=== PATIENT | male | born 1950 | race Caucasian/White ===

== ENCOUNTER → 2017-01-21 | Outpatient (CLI) | payer OTHER ==
[~2017-01-21] MED LIST: ASPEC325 PO; ATEN-175 PO; AZEL0.15 NAE; CRDCD180 PO; GLC500 PO; GLIP10TA3 PO; HYDR25TA5 PO; LEVO125T5 PO; LPT40 PO; NRN100 PO; NSNN50 NAE; RANI150C4 PO; SILD100T PO
[2017-01-21 12:20] LABS: BASO % 0.2 %; BASO ABS # 0.01 K/uL (0-0.2); COMPLETE YES; EOS % 1.6 %; HEMATOCRIT 34.9 % (42-52); IG% 0.6 %; LYMPH % 39.2 %; LYMPH ABS # 2.01 K/uL (1.2-3.4); MEAN CELL VOLUME 85.1 fL (80-100); MEAN CORPUSCULAR HEMOGLOBIN 29.3 pg (25-34); MEAN CORPUSCULAR HGB CONC 34.4 g/dl (32-36); MEAN PLATELET VOLUME 9.7 fL (7.4-10.4); MONO % 11.1 %; NEUT % 47.3 %; PLATELET COUNT 154 K/uL (130-400); WHITE BLOOD COUNT 5.13 K/uL (4.8-10.8)
[2017-01-21 13:15] LABS: ESTIMATED AVERAGE GLUCOSE 151 mg/dl; HA1C FLAG Normal (Normal)
[2017-01-21 14:20] LABS: ALT/SGPT 27 U/L (12-78); BLOOD UREA NITROGEN 31 mg/dl (7-18); BUN/CREATININE RATIO 16.3 (10-20); CALCIUM 8.8 mg/dl (8.5-10.1); CARBON DIOXIDE 26 mmol/L (21-32); CHLORIDE 104 mmol/L (98-107); CHOLESTEROL 110 mg/dl (0-200); GLUCOSE 167 mg/dl (70-99); POTASSIUM 3.8 mmol/L (3.5-5.1); SODIUM 139 mmol/L (136-145); TRIGLYCERIDES 325 mg/dl (0-150); VERY LOW DENSITY LIPOPROT CALC 65 mg/dl
[2017-01-21 14:29] LABS: CHOLESTEROL/HDL RATIO 3.5; HDL CHOLESTEROL 31 mg/dl; LDL CHOLESTEROL CALCULATED 14 mg/dl
--- NOTE | 2017-01-28 07:33 | CODING QUERY MEDICAL NECESSITY ---
CQSUPPORTING DIAGNOSIS NEEDED A supporting diagnosis is required for the test/procedure performed on this patient in order for us to be reimbursed by the patient's insurance. Please provide a supporting diagnosis for the following test/procedure listed below next to the test name along with your signature. *If there is no additional diagnosis for this patient that would support the following test/procedure please document that below next to the test/procedure. Test(s)/Procedure(s) that require a supporting diagnosis: DOS 01/21/17 VITAMINS AND METABOLIC FUNCTION VITAMIN B12 Provider Signature: Date: Thank you Sugar Santos Health Information Management Once completed, please kindly fax back to [phone] For questions please call [phone]
== END | disposition home or self-care (01) ==
LOC: C.LABPBG 09:12
PROVIDERS: ATTEND Family Medicine
DX: E11.9 Type 2 diabetes mellitus without complications (principal); I10 Essential (primary) hypertension; E03.9 Hypothyroidism, unspecified; E78.5 Hyperlipidemia, unspecified

== ENCOUNTER → 2017-02-11 | Outpatient (CLI) | payer OTHER ==
[2017-02-11 15:43] LABS: BLOOD UREA NITROGEN 36 mg/dl (7-18); BUN/CREATININE RATIO 21.2 (10-20); CALCIUM 9.1 mg/dl (8.5-10.1); CARBON DIOXIDE 30 mmol/L (21-32); CHLORIDE 106 mmol/L (98-107); GLUCOSE 111 mg/dl (70-99); MAGNESIUM 2.3 mg/dl (1.8-2.4); PHOSPHORUS 3.5 mg/dl (2.5-4.9); POTASSIUM 4.3 mmol/L (3.5-5.1); SODIUM 142 mmol/L (136-145)
[2017-02-11 15:45] LABS: URINE APPEARANCE CLEAR (CLEAR); URINE BILIRUBIN NEG (NEG); URINE COLOR YELLOW; URINE NITRITE NEG (NEG); UROBILINOGEN NEG (NEG); ZZUR CULT IF INDIC CLEAN CATCH NO
[2017-02-11 15:49] LABS: MANUAL MICROSCOPIC REQUIRED? NO; REVIEW REQ? NO
[2017-02-11 15:59] LABS: URINE PROTIEN/CREAT RATIO 0.2 (0-0.2); URINE TOTAL PROTEIN 31.1 mg/dl (0-11.9)
[2017-02-13 17:33] LABS: ALBUMIN 4.2 G/DL (3.8-4.8); FREE KAPPA 63.1 MG/L (3.3-19.4); GAMMA GLOBULIN 1.3 G/DL (0.8-1.7); TOTAL PROTEIN 7.4 G/DL (6.2-8.3)
== END | disposition home or self-care (01) ==
LOC: C.LAB1850 14:13
PROVIDERS: ATTEND Internal Medicine Nephrology
DX: N18.3 Chronic kidney disease, stage 3 (moderate) (principal)

== ENCOUNTER → 2017-05-07 | Outpatient (CLI) | payer OTHER ==
[~2017-05-07] MED LIST changes: +LEVO125T4 PO; -LEVO125T5 PO
[2017-05-07 17:41] LABS: BLOOD UREA NITROGEN 32 mg/dl (7-18); BUN/CREATININE RATIO 15.8 (10-20); CALCIUM 8.9 mg/dl (8.5-10.1); CARBON DIOXIDE 30 mmol/L (21-32); CHLORIDE 108 mmol/L (98-107); GLUCOSE 121 mg/dl (70-99); PHOSPHORUS 3.6 mg/dl (2.5-4.9); POTASSIUM 4.2 mmol/L (3.5-5.1); SODIUM 141 mmol/L (136-145)
[2017-05-08 08:17] LABS: ESTIMATED AVERAGE GLUCOSE 140 mg/dl; HA1C FLAG Normal (Normal)
== END | disposition home or self-care (01) ==
LOC: C.LABPBG 15:34
PROVIDERS: ATTEND Family Medicine
DX: N18.3 Chronic kidney disease, stage 3 (moderate) (principal); E11.22 Type 2 diabetes mellitus with diabetic chronic kidney disease

== ENCOUNTER → 2017-06-10 | Outpatient (CLI) | payer OTHER ==
[2017-06-10 12:41] LABS: BLOOD UREA NITROGEN 26 mg/dl (7-18); BUN/CREATININE RATIO 14.2 (10-20); CALCIUM 8.9 mg/dl (8.5-10.1); CARBON DIOXIDE 30 mmol/L (21-32); CHLORIDE 106 mmol/L (98-107); GLUCOSE 169 mg/dl (70-99); SODIUM 139 mmol/L (136-145)
[2017-06-10 12:42] LABS: PHOSPHORUS 2.2 mg/dl (2.5-4.9)
== END | disposition home or self-care (01) ==
LOC: C.LAB1850 09:19
PROVIDERS: ATTEND Internal Medicine Nephrology
DX: N18.3 Chronic kidney disease, stage 3 (moderate) (principal)

== ENCOUNTER → 2017-07-31 | Outpatient (CLI) | payer OTHER ==
[2017-07-31 12:06] LABS: URINE APPEARANCE CLEAR (CLEAR); URINE BILIRUBIN NEG (NEG); URINE COLOR YELLOW; URINE EPITHELIAL CELL AUTO 0-5 /lpf (0-5); URINE NITRITE NEG (NEG); URINE SPECIFIC GRAVITY 1.024 (1.000-1.030); UROBILINOGEN NEG (NEG); ZZUR CULT IF INDIC CLEAN CATCH NO
[2017-07-31 12:07] LABS: MANUAL MICROSCOPIC REQUIRED? NO; REVIEW REQ? NO
[2017-07-31 12:21] LABS: URINE PROTIEN/CREAT RATIO 0.1 (0-0.2); URINE TOTAL PROTEIN 16.4 mg/dl (0-11.9)
[2017-07-31 12:37] LABS: BLOOD UREA NITROGEN 28 mg/dl (7-18); BUN/CREATININE RATIO 16.5 (10-20); CARBON DIOXIDE 26 mmol/L (21-32); CHLORIDE 108 mmol/L (98-107); CHOLESTEROL 114 mg/dl (0-200); GLUCOSE 169 mg/dl (70-99); MAGNESIUM 1.9 mg/dl (1.8-2.4); POTASSIUM 4.5 mmol/L (3.5-5.1); SODIUM 141 mmol/L (136-145)
[2017-07-31 12:41] LABS: CHOLESTEROL/HDL RATIO 2.7; HDL CHOLESTEROL 43 mg/dl; LDL CHOLESTEROL CALCULATED 26 mg/dl; PHOSPHORUS 3.3 mg/dl (2.5-4.9); TRIGLYCERIDES 227 mg/dl (0-150); VERY LOW DENSITY LIPOPROT CALC 45 mg/dl
[2017-07-31 12:54] LABS: ESTIMATED AVERAGE GLUCOSE 134 mg/dl; HA1C FLAG Normal (Normal)
== END | disposition home or self-care (01) ==
LOC: C.LABPBG 08:46
PROVIDERS: ATTEND Internal Medicine Nephrology
DX: E11.9 Type 2 diabetes mellitus without complications (principal); E78.5 Hyperlipidemia, unspecified; N28.9 Disorder of kidney and ureter, unspecified

== ENCOUNTER → 2017-12-16 | Outpatient (CLI) | payer OTHER ==
[~2017-12-16] MED LIST changes: -LEVO125T4 PO; +LEVO125T5 PO
[2017-12-16 11:37] LABS: BASO % 0.4 %; BASO ABS # 0.03 K/uL (0-0.2); EOS % 3.1 %; EOS ABS # 0.23 K/uL (0-0.5); HEMATOCRIT 39.5 % (42-52); HEMOGLOBIN 13.4 g/dL (14.0-18.0); IG# 0.03 K/uL (0.00-0.02); LYMPH % 29.6 %; LYMPH ABS # 2.17 K/uL (1.2-3.4); MEAN CELL VOLUME 85.9 fL (80-100); MEAN CORPUSCULAR HEMOGLOBIN 29.1 pg (25-34); MEAN CORPUSCULAR HGB CONC 33.9 g/dl (32-36); MEAN PLATELET VOLUME 10.3 fL (7.4-10.4); MONO % 7.9 %; MONO ABS # 0.58 K/uL (0.11-0.59); NEUT % 58.6 %; PLATELET COUNT 154 K/uL (130-400); RED CELL DISTRIBUTION WIDTH CV 14.1 % (11.5-14.5); RED CELL DISTRIBUTION WIDTH SD 43.5 fL (36.4-46.3); WHITE BLOOD COUNT 7.34 K/uL (4.8-10.8)
[2017-12-16 11:57] LABS: ALBUMIN 3.8 gm/dl (3.4-5.0); ALT/SGPT 31 U/L (12-78); BLOOD UREA NITROGEN 32 mg/dl (7-18); CARBON DIOXIDE 28 mmol/L (21-32); CREATININE 1.96 mg/dl (0.60-1.40); GLUCOSE 212 mg/dl (70-99); PHOSPHORUS 3.3 mg/dl (2.5-4.9); POTASSIUM 4.4 mmol/L (3.5-5.1); SODIUM 138 mmol/L (136-145)
[2017-12-16 12:00] LABS: CHOLESTEROL 136 mg/dl (0-200); LDL CHOLESTEROL CALCULATED 21 mg/dl
[2017-12-16 12:02] LABS: HEMOGLOBIN A1C 7.7 % (4.5-5.6)
== END | disposition home or self-care (01) ==
LOC: C.LABPBG 08:09
PROVIDERS: ATTEND Internal Medicine Nephrology
DX: E78.5 Hyperlipidemia, unspecified (principal); I25.10 Atherosclerotic heart disease of native coronary artery without angina pectoris; N18.3 Chronic kidney disease, stage 3 (moderate); E11.22 Type 2 diabetes mellitus with diabetic chronic kidney disease

== ENCOUNTER → 2018-02-20 | Outpatient (CLI) | payer OTHER ==
--- NOTE | 2018-02-20 08:40 | DIAGNOSTIC IMAGING REPORT ---
ABDOMINAL ULTRASOUND, RIGHT UPPER QUADRANT HISTORY: Right upper quadrant abdominal pain.. COMPARISON: Renal ultrasound 05/15/2015. FINDINGS: Pancreas: The pancreatic head is obscured by overlying bowel gas. The remaining portions of the pancreas are within normal limits. Liver: The liver is echogenic consistent with fatty change. Normal in size measuring 16 cm in length. Gallbladder: No gallbladder wall thickening. No gallstones. CBD: 4 mm. Right kidney: No hydronephrosis. IMPRESSION: 1. Hepatic steatosis. 2. Normal gallbladder. No gallstones. Electronically signed by: Godfrey Prather M.D. 02/20/2018 8:38 AM Dictated Date/Time: 02/20/2018 8:37 AM
== END | disposition home or self-care (01) ==
LOC: C.ULTR 07:58
PROVIDERS: ATTEND Family Medicine
DX: R10.11 Right upper quadrant pain (principal); K76.0 Fatty (change of) liver, not elsewhere classified

== ENCOUNTER 2023-05-28 11:42 | Inpatient (IN) ==
--- NOTE | 2023-05-28 12:40 | Emergency Department Note ---
Impression & Plan Syncope, Atrial flutter, Symptomatic bradycardia, Anemia ED Provider Note NAME: CAYDEN MURDOCK AGE: 72 SEX: M : 1950 ARRIVES VIA: Walk-In INFORMANT: Patient, ED PROVIDER(S): Tomás Marrero MD CHIEF COMPLAINT: Shortness of breath MEDICAL DECISION MAKING: Patient presents due to concern for her associated shortness of breath CLEMENS and syncope. Patient's initial EKG did show a ventricular rate in the 30s. Do believe this is likely contributory. IV was established and blood work was obtained. Blood work shows a normal white count mild anemia hemoglobin of 13 with a normal platelet count. Kidney function with a creatinine 1.7. This is relatively chronic and stable. Troponin is not elevated. Chest x-ray clear. CT head is negative. I did speak with the on-call hospitalist service and the patient was admitted to the medicine service. Patient CT that is negative and the patient's chest x-ray does not show any obvious pneumothorax Prior /Outside records reviewed: I did review the patient's wellness visit from Dr. Rincon who had a Medicare annual wellness visit from May 2023. Patient was there and declined screening for PSA at that time. Patient does have a known history of hypertension depression type 2 diabetes which is not very well controlled. Patient reportedly was above his goal of HbA1c of 7.5% there is concerned that the patient may be not be taking his medications. Differential diagnosis: Symptomatic bradycardia, arrhythmia, dehydration, metabolic abnormality, dehydration among others were considered Diagnostics, as interpreted by me: ECG:Atrial flutter, rate of 35, wide QRS, left axis deviation, no obvious ST elevations. Cardiac monitoring: An order was placed for continuous cardiac monitoring. The monitor shows a rate of 35 with irregularly irregular rhythm. Patient was placed on pulse oximetry Medical decision rules: None Imaging studies: See below I informally reviewed the patient's CT of the head which does not show obvious ICH HPI: Patient presents due to concern for shortness of breath. The patient is noted shortness of breath for the last 1 week. The patient also relates that he had an episode of syncope on Saturday to her he was walking through his kitchen to go out the dog and then fell himself on the floor. The patient does not complain of any significant pain status post fall. He does take blood thinners and has a known history of A-fib. He does follow with Dr. Haney. Patient states that he had persistent dyspnea on exertion and fatigue. Patient denies any orthopnea weight gain or leg swelling. Patient states he is compliant with his medications and does take Eliquis. PAST MEDICAL HISTORY: See Below PAST SURGICAL HISTORY: See Below SOCIAL HISTORY: See Below HOME MEDICATIONS: See Below ALLERGIES: See Below VITALS: See Below PHYSICAL EXAMINATION: GENERAL: NAD, non-toxic. EYE EXAM: Normal conjunctiva. PERRL, no anisocoria and EOM's grossly intact w/o pain. Head: Normocephalic atraumatic. OROPHARYNX: Moist mucus membranes, grossly normal dentition. NECK: Supple, no nuchal rigidity, no adenopathy, non-tender. No signs of meningismus. FROM of the neck with good chin to chest and neck extension. No stridor. No midline C-spine TTP. LUNGS: Clear to auscultation. Normal chest wall mechanics. HEART: Irregularly irregular and bradycardic, no MRG. ABDOMEN: Abdomen soft, non-tender, no masses, no rebound or guarding. BACK: No CVA TTP. SKIN: No rashes and no bruising. UPPER EXTREMITIES: Upper extremities are grossly normal. No TTP or deformity. LOWER EXTREMITIES: Grossly normal, no edema. No TTP or deformity. NEURO EXAM: A&O x3, cranial nerves II-XII grossly intact, normal speech, moves all 4 extremities. Past Med/Surg History Medical History Atrial flutter follows with Dr. Haney [facility] cardio Benign prostatic hyperplasia with urinary obstruction CAD in [place] artery CKD (chronic kidney disease) stage III -- follows with Dr. Hood Garrett Diabetic neuropathy, type II diabetes mellitus NIDDM Dyslipidemia Esophageal reflux Glaucoma Hearing deficit [facility] [place] History of COVID-19 10/2022: congestion, symptoms resolved Hypertension Hypothyroidism Lesion of bladder per pt's dtr, pt refused workup for lesion Sleep apnea no device Urinary frequency Surgical History History of cardiac cath - -- denies stent placement S/P adenoidectomy S/P appendectomy S/P tonsillectomy Family History Mother Diabetes Osteoporosis Congestive heart failure Cardiac disorder Hypertension Stroke Father Thyroid cancer Diabetes Cerebral aneurysm Cardiac disorder Hypertension Brother Cardiovascular disease Cardiac disorder Hypertension Sister Cardiac disorder Hypertension Other No family history of adverse response to anesthesia No family history of bleeding disorder Denies family history of Ovarian cancer Prostate cancer Myocardial infarction Breast cancer Colorectal cancer Social History Smoking Status: Former smoker Second Hand Exposure: No; Do You Dip or Chew Tobacco: No; Hx Alcohol Use: No Hx Substance Use: No Preferred Language: Syriac Communication Ability: Effective Visual Impairment: No Limitations Hearing Ability: Use of Hearing Aid Campus Security Officer Required: No Beliefs That Will Affect Care: None marital status: Current Living Situation: Spouse current occupational status: retired 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 Other Information That Helps Us Care for You: No Feels Safe at Home: Yes Safety Concerns: Feels Safe At This Time Childhood Exposure to Second-Hand Smoke: No Diet: regular caffeine: No Dental Care, Regularly: No Physical Activity Frequency: 1-2 Times per Week Seatbelt Use: sometimes Sunscreen Use: No Assistive Devices: Cane, Walker and Wheelchair Allergies Allergies Allergy/AdvReac Type Severity Reaction Status Date / Time No Known Drug Allergies Allergy Verified 05/20/23 14:28 Home Meds Home Medications Medication Instructions Recorded Confirmed cholecalciferol (vitamin D3) 50 50 mcg PO QAM 12/18/19 05/28/23 mcg (2,000 unit) capsule fexofenadine 180 mg tablet 180 mg PO DAILY PRN Allergy 11/16/22 05/28/23 Symptoms latanoprost 0.005 % eye drops 1 drp ophthalmic (eye) QPM 12/10/22 05/28/23 metoprolol succinate 50 mg 50 mg PO QPM 01/03/23 05/28/23 tablet,extended release 24 hr (Toprol XL) canagliflozin 300 mg tablet 300 mg PO QAM 05/28/23 05/28/23 (Invokana) levothyroxine 75 mcg tablet 75 mcg PO DAILYBB 05/28/23 05/28/23 Previous Rx's Medication Instructions Recorded nitroglycerin 0.4 mg sublingual 0.4 mg sublingual Q5M PRN chest 01/25/22 tablet pain #30 tabs blood-glucose meter (OneTouch #1 ea 07/02/22 Ultra2 Meter) sildenafil 100 mg tablet 100 mg PO .COMPLEX #20 tabs 11/14/22 blood sugar diagnostic #100 ea 01/09/23 atorvastatin 80 mg tablet 80 mg PO HS #90 tabs 03/04/23 diltiazem HCl 240 mg capsule,24 240 mg PO QAM #90 caps 03/04/23 hr,extended release famotidine 40 mg tablet 40 mg PO QPM #90 tabs 03/04/23 glipizide 5 mg tablet 10 mg PO BID #360 tabs 03/04/23 lancets 33 gauge (OneTouch Delica #100 ea 03/13/23 Plus Lancet) gabapentin 300 mg capsule 300 mg PO BID 90 days #180 caps 04/11/23 escitalopram oxalate 20 mg tablet 20 mg PO QPM #90 tabs 04/26/23 metformin 750 mg tablet,extended 750 mg PO QPM #90 tabs 05/28/23 release 24 hr apixaban 5 mg tablet (Eliquis) 5 mg PO BID #180 tabs 05/29/23 Results & Data (ED) Vital Signs Vital Signs - 24 hr 05/28/23 11:52 05/28/23 11:52 05/28/23 11:55 Temperature 36.8 C Temperature Source Temporal Artery Scan Pulse Rate 54 L Respiratory Rate 20 Respiratory Effort / Characteristics Spontaneous Non-Labored Spontaneous Respiratory Depth Normal Normal Respiratory Pattern Regular Regular Blood Pressure 110/72 Blood Pressure Mean 84 Blood Pressure Position Sitting Pulse Oximetry 95 96 Oxygen Delivery Method Room Air Room Air Room Air Sepsis Recent Fever Within 48 Hours No Sepsis New/Unexplained Change in Mental Status No Sepsis Action Taken by Nursing No Action Required 05/28/23 13:30 Temperature Temperature Source Pulse Rate Respiratory Rate Respiratory Effort / Characteristics Respiratory Depth Respiratory Pattern Blood Pressure Blood Pressure Mean Blood Pressure Position Pulse Oximetry Oxygen Delivery Method Room Air Sepsis Recent Fever Within 48 Hours Sepsis New/Unexplained Change in Mental Status Sepsis Action Taken by Long Term Medications Current Medication List: was personally reviewed by me Laboratory Data Attestation: I reviewed the patient's lab results. 05/28/23 12:40 05/28/23 12:40 Lab Results 05/28/23 05/28/23 05/28/23 Range/Units 11:55 12:40 12:40 WBC 6.93 (4.8-10.8) K/ul RBC 4.53 L (4.70-6.10) M/uL Hgb 13.6 L (14.0-18.0) g/dl Hct 41.6 L (42.0-52.0) % MCV 91.8 (80.0-100.0) fL MCH 30.0 (25.0-34.0) pg MCHC 32.7 (32.0-36.0) g/dL RDW Std Deviation 48.3 H (36.4-46.3) fL RDW Coeff of Jean 14.6 H (11.5-14.5) % Plt Count 137 (130-400) K/uL MPV 11.2 (9.4-12.4) fL Immature Gran % (Auto) 0.3 % Neut % (Auto) 67.0 % Lymph % (Auto) 22.8 % Blair % (Auto) 7.1 % Eos % (Auto) 2.5 % Baso % (Auto) 0.3 % Neut # (Auto) 4.65 (1.40-6.50) K/uL Lymph # (Auto) 1.58 (1.2-3.4) K/uL Blair # (Auto) 0.49 (0.11-0.59) K/uL Eos # (Auto) 0.17 (0-0.50) K/uL Baso # (Auto) 0.02 (0-0.2) K/uL Immature Gran # (Auto) 0.02 (0.01-0.20) K/uL PT 12.5 H (9.0-12.0) Seconds INR 1.2 H (0.9-1.1) APTT 30.2 (21.0-31.0) Seconds PTT Ratio 1.1 Sodium (136-145) mmol/L Potassium (3.5-5.1) mmol/L Chloride (98-107) mmol/L Carbon Dioxide (21-32) mmol/L Anion Gap (3-11) BUN (6-23) mg/dl Creatinine (0.6-1.4) mg/dl Est Cr Clr Drug Dosing Est GFR ( Amer) ml/min Est GFR (Non-Af Amer) ml/min BUN/Creatinine Ratio (10-20) Glucose (70-99(Fasting)) mg/dl Calcium (8.6-10.3) mg/dl Magnesium (1.7-2.4) mg/dl Total Bilirubin (0.2-1.0) mg/dl AST (13-39) U/L ALT (7-52) U/L Alkaline Phosphatase (34-104) U/L Troponin I High Sens (0-20) pg/ml Total Protein (6.0-8.3) gm/dl Albumin (3.4-5.0) gm/dl Globulin (2.5-4.0) gm/dl Albumin/Globulin Ratio (0.9-2) TSH 4.581 H (0.300-4.500) uIu/ml Lyme Disease IgG Ab (Negative) Lyme Disease IgM Ab (Negative) 05/28/23 05/28/23 Range/Units 12:40 12:40 WBC (4.8-10.8) K/ul RBC (4.70-6.10) M/uL Hgb (14.0-18.0) g/dl Hct (42.0-52.0) % MCV (80.0-100.0) fL MCH (25.0-34.0) pg MCHC (32.0-36.0) g/dL RDW Std Deviation (36.4-46.3) fL RDW Coeff of Jean (11.5-14.5) % Plt Count (130-400) K/uL MPV (9.4-12.4) fL Immature Gran % (Auto) % Neut % (Auto) % Lymph % (Auto) % Blair % (Auto) % Eos % (Auto) % Baso % (Auto) % Neut # (Auto) (1.40-6.50) K/uL Lymph # (Auto) (1.2-3.4) K/uL Blair # (Auto) (0.11-0.59) K/uL Eos # (Auto) (0-0.50) K/uL Baso # (Auto) (0-0.2) K/uL Immature Gran # (Auto) (0.01-0.20) K/uL PT (9.0-12.0) Seconds INR (0.9-1.1) APTT (21.0-31.0) Seconds PTT Ratio Sodium 141 (136-145) mmol/L Potassium 4.8 (3.5-5.1) mmol/L Chloride 110 H (98-107) mmol/L Carbon Dioxide 25 (21-32) mmol/L Anion Gap 6 (3-11) BUN 32 H (6-23) mg/dl Creatinine 1.77 H (0.6-1.4) mg/dl Est Cr Clr Drug Dosing Not Reportable Est GFR ( Amer) 43.2 ml/min Est GFR (Non-Af Amer) 37.3 ml/min BUN/Creatinine Ratio 18.1 (10-20) Glucose 137 H (70-99(Fasting)) mg/dl Calcium 9.4 (8.6-10.3) mg/dl Magnesium 2.1 (1.7-2.4) mg/dl Total Bilirubin 1.0 (0.2-1.0) mg/dl AST 21 (13-39) U/L ALT 37 (7-52) U/L Alkaline Phosphatase 90 (34-104) U/L Troponin I High Sens 8.2 (0-20) pg/ml Total Protein 6.9 (6.0-8.3) gm/dl Albumin 3.9 (3.4-5.0) gm/dl Globulin 3.0 (2.5-4.0) gm/dl Albumin/Globulin Ratio 1.3 (0.9-2) TSH (0.300-4.500) uIu/ml Lyme Disease IgG Ab Negative (Negative) Lyme Disease IgM Ab Negative (Negative) Administered Medications Apixaban (Apixaban 5 Mg Tablet) 5 mg PO BID SABA Stop: 06/27/23 20:59 Last Admin: 05/29/23 08:53 Dose: 5 mg Documented By: Admin: 05/28/23 20:16 Dose: 5 mg Documented By: OUTREACH ANALYST Atorvastatin Calcium (Atorvastatin 40 Mg Tab) 80 mg PO HS SABA Stop: 06/27/23 20:59 Last Admin: 05/28/23 20:17 Dose: 80 mg Documented By: OUTREACH ANALYST Escitalopram Oxalate (Escitalopram Oxalate 20 Mg Tab) 20 mg PO QPM SABA Stop: 06/27/23 20:59 Last Admin: 05/28/23 20:17 Dose: 20 mg Documented By: OUTREACH ANALYST Famotidine (Famotidine 40 Mg Tablet) 40 mg PO QPM SABA Stop: 06/27/23 20:59 Last Admin: 05/28/23 20:17 Dose: 40 mg Documented By: OUTREACH ANALYST Gabapentin (Gabapentin 300 Mg Cap) 300 mg PO BID SABA Stop: 06/27/23 20:59 Last Admin: 05/29/23 08:53 Dose: 300 mg Documented By: Admin: 05/28/23 20:17 Dose: 300 mg Documented By: OUTREACH ANALYST Insulin Aspart (Insulin Aspart Per Unit Charge) 0 units SC ACHS SBAA Stop: 06/27/23 18:57 Last Admin: 05/29/23 14:07 Dose: 2 units Documented By: OO Co-signed By: [facility] Admin: 05/29/23 08:40 Dose: Not Given Documented By: Admin: 05/28/23 20:24 Dose: Not Given Documented By: OUTREACH ANALYST Admin: 05/28/23 20:18 Dose: Not Given Documented By: OUTREACH ANALYST Latanoprost (Latanoprost 0.005% Op Soln 2.5 Ml Btl) 1 drops OP QPM SABA Stop: 06/27/23 20:59 Last Admin: 05/28/23 20:18 Dose: 1 drops Documented By: OUTREACH ANALYST Levothyroxine Sodium (Levothyroxine Sodium 75 Mcg Tablet) 75 mcg PO DAILYBB [facility] Stop: 06/28/23 06:29 Last Admin: 05/29/23 06:28 Dose: 75 mcg Documented By: OUTREACH ANALYST Vitamin D (Cholecalciferol 1,000 Units 25 Mcg Tab) 2,000 units PO QAM SABA Stop: 06/28/23 08:59 Last Admin: 05/29/23 08:53 Dose: 2,000 units Documented By: OO Imaging Data Radiologist's Impression: Chest X-Ray 05/28/23 11:55 XR chest 1V portable HISTORY: Chest pain, nonspecific COMPARISON: Chest 05/15/2015. FINDINGS: There are low lung volumes. The cardiac silhouette is borderline enlarged. No pleural effusions. No pneumothorax. No evidence for pulmonary edema. No acute fractures identified.. There is a left basilar linear density. Otherwise, lungs are clear. IMPRESSION: 1. Low lung volumes with borderline enlargement of the cardiac silhouette. This is similar to the prior study. 2. A left basilar linear density favors subsegmental atelectasis or scarring. ACT 112: Negative or not required by law. Electronically signed by: Godfrey Prather M.D. 05/28/2023 1:19 PM Chest X-Ray 05/28/23 11:55 XR chest 1V portable HISTORY: Chest pain, nonspecific COMPARISON: Chest 05/15/2015. FINDINGS: There are low lung volumes. The cardiac silhouette is borderline enlarged. No pleural effusions. No pneumothorax. No evidence for pulmonary edema. No acute fractures identified.. There is a left basilar linear density. O therwise, lungs are clear. IMPRESSION: 1. Low lung volumes with borderline enlargement of the cardiac silhouette. This is similar to the prior study. 2. A left basilar linear density favors subsegmental atelectasis or scarring. ACT 112: Negative or not required by law. Electronically signed by: Godfrey Prather M.D. 05/28/2023 1:[address] 05/28/23 12:59 CT head/brain wo con CLINICAL HISTORY: 72 years-old Male with syncope. Acute syncope TECHNIQUE: Multiple axial CT images of the head were obtained without contrast. A dose lowering technique was utilized adhering to the principles of ALARA. CT DOSE: 625.80 mGy.cm COMPARISON: 05/15/2015, 04/26/2023. FINDINGS: No acute intracranial hemorrhage, midline shift, intracranial mass, h ydrocephalus, territorial ischemia or abnormal extra-axial collection. Involutional changes with chronic microvascular ischemic disease. The calvarium is intact. Subcutaneous edema within the right suboccipital tissues suggestive of a contusion. The paranasal sinuses, mastoid air cells, and middle ear cavities are clear. IMPRESSION: No acute intracranial abnormality. ACT 112: Negative or not required by law. The above report was generated using voice recognition software. It may contain grammatical, syntax or spelling errors. Electronically signed by: Aly Guzman M.D. 05/28/2023 2:21 PM Discharge Plan Visit Data Chief Complaint: Shortness of Breath/Dyspnea Stated Complaint: SOB WHEN WALKING,SUGAR IS 345 ED Provider: Tomás Marrero Discharge Problem: Syncope, Atrial flutter, Symptomatic bradycardia, Anemia Patient Disposition: Admitted As Inpatient Discharge Instructions Interventions: ED Discharge Assessment Last Done: 05/28/23 18:09
[2023-05-28 13:15] LABS: Basophils # (auto) 0.02 K/uL (0-0.2); Basophils % (auto) 0.3 %; Eosinophils # (auto) 0.17 K/uL (0-0.50); Eosinophils % (auto) 2.5 %; Hematocrit (blood only) 41.6 % (42.0-52.0); Hemoglobin 13.6 g/dl (14.0-18.0); Immature Granulocytes # (auto) 0.02 K/uL (0.01-0.20); Immature Granulocytes % (auto) 0.3 %; Lymphocytes # (auto) 1.58 K/uL (1.2-3.4); Lymphocytes % (auto) 22.8 %; Mean Corpuscular Hgb Conc 32.7 g/dL (32.0-36.0); Mean Corpuscular Volume 91.8 fL (80.0-100.0); Mean Platelet Volume 11.2 fL (9.4-12.4); Monocytes # (auto) 0.49 K/uL (0.11-0.59); Monocytes % (auto) 7.1 %; Neutrophils # (auto) 4.65 K/uL (1.40-6.50); Platelet Count 137 K/uL (130-400); RDW Coefficient of Variation 14.6 % (11.5-14.5); RDW Standard Deviation 48.3 fL (36.4-46.3); Red Blood Count 4.53 M/uL (4.70-6.10); White Blood Count 6.93 K/ul (4.8-10.8)
[2023-05-28 13:21] LABS: Alanine Aminotransferase 37 U/L (7-52); Albumin Globulin Ratio 1.3 (0.9-2); Albumin Level 3.9 gm/dl (3.4-5.0); Alkaline Phosphatase 90 U/L (34-104); Anion Gap 6 (3-11); Aspartate Aminotransferase 21 U/L (13-39); BUN Creatinine Ratio 18.1 (10-20); Blood Urea Nitrogen 32 mg/dl (6-23); Calcium 9.4 mg/dl (8.6-10.3); Carbon Dioxide 25 mmol/L (21-32); Chloride 110 mmol/L (98-107); Est GFR (African American) 43.2 ml/min; Est GFR (Non-African American) 37.3 ml/min; Glucose 137 mg/dl (70-99(Fasting)); Potassium 4.8 mmol/L (3.5-5.1); Sodium 141 mmol/L (136-145); Total Protein 6.9 gm/dl (6.0-8.3)
--- NOTE | 2023-05-28 13:21 | XRay Report ---
XR chest 1V portable HISTORY: Chest pain, nonspecific COMPARISON: Chest 05/15/2015. FINDINGS: There are low lung volumes. The cardiac silhouette is borderline enlarged. No pleural effus ions. No pneumothorax. No evidence for pulmonary edema. No acute fractures identified.. There is a le ft basilar linear density. Otherwise, lungs are clear. IMPRESSION: 1. Low lung volumes with borderline enlargement of the cardiac silhouette. This is similar to the sena or study. 2. A left basilar linear density favors subsegmental atelectasis or scarring. ACT 112: Negative or not required by law. Electronically signed by: Godfrey Prather M.D. 05/28/2023 1:19 PM
[2023-05-28 13:27] LABS: Troponin I High Sensitivity 8.2 pg/ml (0-20)
[2023-05-28 13:46] LABS: INR 1.2 (0.9-1.1); Partial Thromboplastin Ratio 1.1; Partial Thromboplastin Time 30.2 Seconds (21.0-31.0); Prothrombin Time 12.5 Seconds (9.0-12.0)
--- NOTE | 2023-05-28 14:23 | CT Scan Report ---
CT head/brain wo con CLINICAL HISTORY: 72 years-old Male with syncope. Acute syncope TECHNIQUE: Multiple axial CT images of the head were obtained without contrast. A dose lowering tech nique was utilized adhering to the principles of ALARA. CT DOSE: 625.80 mGy.cm COMPARISON: 05/15/2015, 04/26/2023. FINDINGS: No acute intracranial hemorrhage, midline shift, intracranial mass, hydrocephalus, territorial ischem ia or abnormal extra-axial collection. Involutional changes with chronic microvascular ischemic disea se. The calvarium is intact. Subcutaneous edema within the right suboccipital tissues suggestive of a con tusion. The paranasal sinuses, mastoid air cells, and middle ear cavities are clear. IMPRESSION: No acute intracranial abnormality. ACT 112: Negative or not required by law. The above report was generated using voice recognition software. It may contain grammatical, syntax o r spelling errors. Electronically signed by: Aly Guzman M.D. 05/28/2023 2:21 PM
--- NOTE | 2023-05-28 14:46 | History & Physical Report ---
Date of Service May 28, 2023 Assessment & Plan (1) Syncope: Plan: Likely secondary to bradycardia which is ongoing -Admit to PCU for telemetry monitoring -Hold diltiazem and metoprolol for bradycardia -Check echocardiogram -Check Lyme IgM and IgG in case of intermittent heart block -Bedrest only for now given significant lightheadedness with standing (2) Bradycardia: Plan: With slow atrial fibrillation with heart rate in the low 30s and presented with syncope Holding diltiazem and metoprolol as above Consult cardiology If heart rates not improving with holding AV ziggy blockers or if has rapid atrial flutter, may need cardioversion and/or pacemaker placement Monitor on telemetry (3) Atrial flutter: Plan: As noted above Continue Eliquis (4) Stage III chronic kidney disease: Plan: Creatinine at baseline 1.7 -Avoid nephrotoxins -renally dose meds when appropriate -follow BMP (5) CAD in [place] artery: Plan: Nonobstructive CAD from cardiac catheterization done in the . No angina typically but has had some lately with a slow atrial fibrillation Continue statin but holding beta-tomas for bradycardia Continue Eliquis (6) Hypothyroidism: Plan: No recent TSH in the last year Given bradycardia, check TSH now Continue home levothyroxine (7) Hypertension: Plan: Holding home metoprolol and diltiazem for bradycardia Holding Invokana Monitor blood pressures (8) Diabetic neuropathy, type II diabetes mellitus: Plan: Continue gabapentin (9) Sleep apnea: Plan: Has attempted sleep study 2 times but not able to sleep long enough for adequate results May need supplemental O2 overnight (10) Type 2 diabetes mellitus: Plan: Holding home Invokana, glipizide, metformin while inpatient Hemoglobin A1c recently checked and elevated at 8.6% Accu-Cheks, diabetic diet, NovoLog supplemental insulin Add Lantus if needed in the morning (11) Benign prostatic hyperplasia with urinary obstruction: Plan: No acute issues (12) Depression: Plan: Continue home escitalopram (13) Vitamin B12 deficiency: Plan: With mild normocytic anemia with hemoglobin 13.6 Not on B12 supplement Follow-up as an outpatient (14) Vitamin D deficiency: Plan: Continue home vitamin D supplement (15) Esophageal reflux: Plan: Continue home Pepcid (16) Dyslipidemia: Plan: Continue home statin Plan DVT prophylaxis-Eliquis Disposition-admit to PCU on observation DNR/DNI as discussed with patient but he is okay with medications for bradycardia. He would like his and daughter to be decision-makers if he is unable to make decisions for himself. History of Present Illness Chief Complaint: Shortness of breath Primary Care Provider: Nina Rincon MD This patient is a 72-year-old male with a history of atrial flutter requiring previous cardioversion, LBBB, CKD stage III, NATALIA, DM2 with neuropathy, CAD, BPH, hypothyroidism, depression, HTN, GERD, vitamin B12 deficiency, vitamin D deficiency, who presents to the ER with shortness of breath and an episode of syncope that occurred on 05/26. With his episode of syncope, he notes that he wa s walking through his kitchen to let his dog out and fell onto the floor. No pain or injuries from the fall. Since then, he has had persistent shortness of breath with exertion as well as complaints of fatigue. Denies any orthopnea, weight gain, or leg swelling. He does take Eliquis. In the ER, he was found to have heart rate in the 30s with slow atrial flutter. Allergies Allergy/AdvReac Type Severity Reaction Status Date / Time No Known Drug Allergies Allergy Verified 05/20/23 14:28 Home Medications Medication Instructions Recorded Confirmed Type azelastine 137 mcg (0.1 %) nasal 1 sprays intranasal BID 03/20/19 03/19/23 History spray aerosol cholecalciferol (vitamin D3) 50 50 mcg PO QAM 12/18/19 03/19/23 History mcg (2,000 unit) capsule acetaminophen 300 mg-codeine 30 mg 1 tab PO Q8H PRN pain #30 tabs 10/30/21 03/19/23 Rx tablet nitroglycerin 0.4 mg sublingual 0.4 mg sublingual Q5M PRN chest 11/07/21 03/19/23 Rx tablet pain #30 tabs blood-glucose meter (OneTouch #1 ea 07/02/22 03/19/23 Rx Ultra2 Meter) sildenafil 100 mg tablet 100 mg PO .COMPLEX #20 tabs 11/14/22 03/19/23 Rx fexofenadine 180 mg tablet 180 mg PO DAILY PRN Allergy 11/16/22 03/19/23 History Symptoms apixaban 5 mg tablet (Eliquis) 5 mg PO BID #180 tabs 12/10/22 03/19/23 Rx latanoprost 0.005 % eye drops 1 drp ophthalmic (eye) QPM 12/10/22 03/19/23 History metoprolol succinate 50 mg 50 mg PO QPM 01/03/23 03/19/23 History tablet,extended release 24 hr (Toprol XL) blood sugar diagnostic #100 ea 01/09/23 03/19/23 Rx atorvastatin 80 mg tablet 80 mg PO HS #90 tabs 03/04/23 03/19/23 Rx canagliflozin 300 mg tablet See Rx Instructions .Route 03/04/23 03/19/23 Rx (Invokana) .COMPLEX #90 tabs diltiazem HCl 240 mg capsule,24 240 mg PO QAM #90 caps 03/04/23 03/19/23 Rx hr,extended release famotidine 40 mg tablet 40 mg PO QPM #90 tabs 03/04/23 03/19/23 Rx glipizide 5 mg tablet 10 mg PO BID #360 tabs 03/04/23 03/19/23 Rx lancets 33 gauge (OneTouch Delica #100 ea 03/13/23 03/19/23 Rx Plus Lancet) gabapentin 300 mg capsule 300 mg PO BID 90 days #180 caps 04/11/23 Rx escitalopram oxalate 20 mg tablet 20 mg PO QPM #90 tabs 04/26/23 Rx levothyroxine 75 mcg tablet See Rx Instructions .Route 05/28/23 Rx .COMPLEX #90 tabs metformin 750 mg tablet,extended 750 mg PO QPM #90 tabs 05/28/23 Rx release 24 hr Past Med/Surg History Medical History Atrial flutter follows with Dr. Haney [facility] cardio Benign prostatic hyperplasia with urinary obstruction CAD in [place] artery CKD (chronic kidney disease) stage III -- follows with Dr. Hood Garrett Diabetic neuropathy, type II diabetes mellitus NIDDM Dyslipidemia Esophageal reflux Glaucoma Hearing deficit [facility] [place] History of COVID-19 10/2022: congestion, symptoms resolved Hypertension Hypothyroidism Lesion of bladder per pt's dtr, pt refused workup for lesion Sleep apnea no device Urinary frequency Surgical History History of cardiac cath 1990s - S -- denies stent placement S/P adenoidectomy S/P appendectomy S/P tonsillectomy Family History Mother Diabetes Osteoporosis Congestive heart failure Cardiac disorder Hypertension Stroke Father Thyroid cancer Diabetes Cerebral aneurysm Cardiac disorder Hypertension Brother Cardiovascular disease Cardiac disorder Hypertension Sister Cardiac disorder Hypertension Other No family history of adverse response to anesthesia No family history of bleeding disorder Denies family history of Ovarian cancer Prostate cancer Myocardial infarction Breast cancer Colorectal cancer Social History Smoking Status: Never smoker Second Hand Exposure: No; Do You Dip or Chew Tobacco: No; Hx Alcohol Use: No Hx Substance Use: No Preferred Language: Telugu Communication Ability: Effective Visual Impairment: No Limitations Hearing Ability: Use of Hearing Aid Take Up Operator Required: No Beliefs That Will Affect Care: None marital status: Current Living Situation: Spouse current occupational status: retired 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 Feels Safe at Home: Yes Childhood Exposure to Second-Hand Smoke: No Diet: regular caffeine: No Dental Care, Regularly: No Physical Activity Frequency: 1-2 Times per Week Seatbelt Use: sometimes Sunscreen Use: No Assistive Devices: Glasses and Hearing Aid - Bilateral Review of Systems Review of Systems: All systems reviewed & are unremarkable except as noted in HPI & below No recent fevers or headaches, no injuries to the joints or soft tissues from the fall Positive lightheadedness with standing up Some chest pressure, positive dyspnea on exertion No constipation but does have chronic loose stools with taking metformin Physical Exam Constitutional: WD/WN, vitals as above Eyes: PERRL, conjunctivae normal, anicteric sclerae ENMT: external ear and nose normal, oropharynx normal Neck: trachea midline, no thyromegaly Respiratory: normal respiratory effort, lungs clear to auscultation Cardiovascular: Rate/Rhythm: + bradycardic and + irregularly irregular Heart Sounds: no murmur Chest (Breasts): Chest: normal inspection of chest Gastrointestinal (Abdomen): normal bowel sounds, soft, nontender, no hepatosplenomegaly Musculoskeletal: Extremities: extremities normal to inspection; no cyanosis and no clubbing Skin: no rashes, warm and dry Neurologic: moves all extremities and awake; no focal motor deficits Psychiatric: A+Ox3, euthymic affect Lymphatic: no lymphedema Results & Data Results & Data Vital Signs (Past 12 Hours) Vital Signs Temp Pulse Resp BP Pulse Ox O2 Del Method 05/28/23 14:17 33 L 9 L 123/68 97 05/28/23 13:30 Room Air 05/28/23 11:55 96 Room Air 05/28/23 11:52 36.8 C 54 L 20 110/72 95 Room Air 05/28/23 11:52 Room Air Laboratory Results CBC, coags, CMP, troponin, all reviewed Diagnostic Findings Chest X-Ray 05/28/23 11:55 XR chest 1V portable HISTORY: Chest pain, nonspecific COMPARISON: Chest 05/15/2015. FINDINGS: There are low lung volumes. The cardiac silhouette is borderline enlarged. No pleural effusions. No pneumothorax. No evidence for pulmonary edema. No acute fractures identified.. There is a left basilar linear density. Otherwise, lungs are clear. IMPRESSION: 1. Low lung volumes with borderline enlargement of the cardiac silhouette. This is similar to the prior study. 2. A left basilar linear density favors subsegmental atelectasis or scarring. ACT 112: Negative or not required by law. Electronically signed by: Godfrey Prather M.D. 05/28/2023 1:[address] 05/28/23 12:59 CT head/brain wo con CLINICAL HISTORY: 72 years-old Male with syncope. Acute syncope TECHNIQUE: Multiple axial CT images of the head were obtained without contrast. A dose lowering technique was utilized adhering to the principles of ALARA. CT DOSE: 625.80 mGy.cm COMPARISON: 05/15/2015, 04/26/2023. FINDINGS: No acute intracranial hemorrhage, midline shift, intracranial mass, hydrocephalus, territorial ischemia or abnormal extra-axial collection. Involutional changes with chronic microvascular ischemic disease. The calvarium is intact. Subcutaneous edema within the right suboccipital ti ssues suggestive of a contusion. The paranasal sinuses, mastoid air cells, and middle ear cavities are clear. IMPRESSION: No acute intracranial abnormality. ACT 112: Negative or not required by law. The above report was generated using voice recognition software. It may contain grammatical, syntax or spelling errors. Electronically signed by: Aly Guzman M.D. 05/28/2023 2:21 PM ECG Additional Comments: ECG on 05/28/2023 at 1235 with atrial flutter, ventricular rate 35, RBBB Code Status & VTE Plan Code Status DNR/DNI VTE Prophylaxis Plan VTE Prophylaxis will be ordered: Yes PG Care Time/CCT Total # of Minutes Spent Total Time Spent with Patient: Total time spent is greater than 50% in coordination of care (as documented) at patient's floor/unit and/or counseling patient: Coding Level of Care Code 38518 INT INP/OBS CARE 3/75MIN Diagnoses Syncope R55 Bradycardia R00.1 Atrial flutter I48.92 Stage III chronic kidney disease N18.3 CAD in [place] artery I25.10 Hypothyroidism E03.9 Hypertension I10 Diabetic neuropathy, type II diabetes mellitus E11.40 Sleep apnea G47.30 Type 2 diabetes mellitus E11.9 Benign prostatic hyperplasia with urinary obstruction N40.1; N13.8 Depression F32.9 Vitamin B12 deficiency E53.8 Vitamin D deficiency E55.9 Esophageal reflux K21.9 Dyslipidemia E78.5
[2023-05-28 15:57] LABS: Magnesium 2.1 mg/dl (1.7-2.4)
--- NOTE | 2023-05-28 16:09 | Electrocardiogram Report ---
Test Reason : Blood Pressure : / mmHG Vent. Rate : 035 BPM Atrial Rate : 262 BPM P-R Int : 000 ms QRS Dur : 128 ms QT Int : 602 ms P-R-T Axes : 072 -52 -08 degrees QTc Int : 459 ms Atrial flutter Left axis deviation Right bundle branch block Abnormal ECG When compared with ECG of 10-JAN-2023 07:19, Atrial flutter has replaced Sinus rhythm Vent. rate has decreased BY 34 BPM Right bundle branch block has replaced Left bundle branch block Confirmed by Kendall Coburn ([id number]) on 05/28/2023 4:09:29 PM Referred By: REFERRED SELF Confirmed By:Kendall Coburn
[2023-05-28 16:25] LABS: Lyme Ab IgG w/WB Rflx Negative (Negative); Lyme Ab IgM w/WB Rflx Negative (Negative)
[2023-05-28] MEDS ORDERED: AZELASTINE HCL 0.1% NASAL 200 SPRAYS/27,400 MCG BTL NAE PRN (18:58)
[2023-05-28] MEDS ORDERED: GLUCOSE 10 TAB/TUBE PO PRN (18:58)
[2023-05-28] MEDS ORDERED: GLUCAGON FOR INJ 1 MG VIAL SQ PRN (18:58)
[2023-05-28] MEDS ORDERED: GLUCOSE 40% GEL 15 GM TUBE PO PRN (18:58)
[2023-05-28] MEDS ORDERED: NITROGLYCERIN SL 0.4 MG/TAB TAB SL PRN (18:58)
[2023-05-28] MEDS ORDERED: DEXTROSE 50% 50 ML SYRINGE IV PRN (18:58)
[2023-05-28] MEDS ORDERED: FEXOFENADINE HCL 180 MG TAB PO PRN (18:58)
[2023-05-28] MEDS ORDERED: CARBOHYDRATES FOR HYPOGLYCEMIA PO PRN (18:58)
[2023-05-28] MEDS ORDERED: ATROPINE SULFATE 0.1 MG/ML 5ML SYR IV PRN (19:06)
[2023-05-28] MEDS: APIXABAN 5 MG TABLET PO SCH (20:16)
[2023-05-28] MEDS: FAMOTIDINE 40 MG TABLET PO SCH (20:17)
[2023-05-28] MEDS: ESCITALOPRAM OXALATE 20 MG TAB PO SCH (20:17)
[2023-05-28] MEDS: ATORVASTATIN 40 MG TAB PO SCH (20:17)
[2023-05-28] MEDS: GABAPENTIN 300 MG CAP PO SCH (20:17)
[2023-05-28] MEDS: INSULIN ASPART PER UNIT CHARGE SC SCH ×2 (20:18→20:24)
[2023-05-28] MEDS: LATANOPROST 0.005% OP SOLN 2.5 ML BTL OP SCH (20:18)
[2023-05-29] MEDS: LEVOTHYROXINE SODIUM 75 MCG TABLET PO SCH (06:28)
[2023-05-29 07:42] LABS: Basophils # (auto) 0.02 K/uL (0-0.2); Basophils % (auto) 0.4 %; Eosinophils # (auto) 0.18 K/uL (0-0.50); Eosinophils % (auto) 3.2 %; Hematocrit (blood only) 38.6 % (42.0-52.0); Immature Granulocytes # (auto) 0.01 K/uL (0.01-0.20); Immature Granulocytes % (auto) 0.2 %; Lymphocytes % (auto) 26.5 %; Mean Corpuscular Hemoglobin 30.7 pg (25.0-34.0); Mean Corpuscular Hgb Conc 33.7 g/dL (32.0-36.0); Mean Corpuscular Volume 91.3 fL (80.0-100.0); Mean Platelet Volume 11.1 fL (9.4-12.4); Monocytes # (auto) 0.36 K/uL (0.11-0.59); Monocytes % (auto) 6.4 %; Neutrophils # (auto) 3.58 K/uL (1.40-6.50); Neutrophils % (auto) 63.3 %; Platelet Count 118 K/uL (130-400); RDW Coefficient of Variation 14.4 % (11.5-14.5); RDW Standard Deviation 47.8 fL (36.4-46.3); Red Blood Count 4.23 M/uL (4.70-6.10); White Blood Count 5.65 K/ul (4.8-10.8)
[2023-05-29 08:04] LABS: BUN Creatinine Ratio 18.8 (10-20); Calcium 8.9 mg/dl (8.6-10.3); Creatinine Clr Calc Pharmacy 50.1 ml/min; Est GFR (Non-African American) 40.6 ml/min; Magnesium 2.1 mg/dl (1.7-2.4); Potassium 4.5 mmol/L (3.5-5.1)
[2023-05-29] MEDS: INSULIN ASPART PER UNIT CHARGE SC SCH ×4 (08:40→20:22)
[2023-05-29] MEDS: APIXABAN 5 MG TABLET PO SCH (08:53)
[2023-05-29] MEDS: GABAPENTIN 300 MG CAP PO SCH ×2 (08:53→20:13)
[2023-05-29] MEDS: CHOLECALCIFEROL 1,000 UNITS 25 MCG TAB PO SCH (08:53)
--- NOTE | 2023-05-29 09:14 | Cardiology Consultation ---
Date of Consultation May 29, 2023 Assessment & Plan (1) Symptomatic bradycardia: (2) Atrial flutter: (3) Syncope: (4) CLEMENS (dyspnea on exertion): Mr. Boone is a 72-year-old male with a history of CAD, Paroxysmal Atrial Flutter s/p Cardioversion 12/14/22, Moderate Concentric LVH, Hypertension, Type 2 Diabetes Mellitus, Diabetic Neuropathy, Stage 3 Chronic Kidney Disease, GERD, Dyslipidemia, Sleep Apnea, Hypothyroidism, and Sleep Apnea who was admitted on 05/28/23 after having a Syncopal Episode on 05/26/23, CLEMENS/SOB, and on admission he was noted to be markedly bradycardic in Atrial Flutter with a V-rate of 32 bpm. His Toprol XL and Diltiazem CD have been held for > 24 hours and despite holding these negative chronotropic medications his ventricular rate is ranging between 32-34 bpm last night, overnight, and this morning according to his environmental monitoring specialist. His Lyme titer is negative. No reversible cause for his conduction disease has been identified. His EKG on admission shows atrial flutter with a slow ventricular response rate. Cardiac monitoring confirms the same. His high sensitivity troponin I is normal at 8.2 pg/mL. WBC count is 5.65, hemoglobin 13.0 g/dL, hematocrit is 38.6%, platelet count [id number]. Sodium is 141 mmol/L, potassium 4.5 mmol/L, BUN 31 mg/dL, creatinine 1.65 mg/dL, and his magnesium is normal at 2.1 mg/dL. TSH is elevated at 4.581 uIu/mL. I would not expect this degree of hypothyroidism would contribute to his bradycardic heart rate. Patient is being seen in room 220-1, and his daughter is present. He still feels a little off with some occasional lightheadedness and intermittent dyspnea. He has not had any further syncopal episodes. Patient has not had any angina pectoris or anginal equivalent symptoms and he does not have any overt evidence of CHF. He remains in slow atrial flutter today. Patient has not had any focal neurologic symptoms suggestive of stroke or mini stroke. He has been compliant with his medications. He has not missed any doses of Eliquis. Recommend the followin. Continue holding Toprol XL. 2. Continue holding Diltiazem CD. 3. Patient has atrial flutter with slow ventricular response and a bifascicular block without reversible causes of conduction disease -- permanent pacemaker placement is indicated. 4. I discussed this case with Dr. Gomez -- who is willing to implant a permanent dual-chamber pacemaker (preferably with a left bundle lead) tomorrow. 5. Hold Eliquis until after pacemaker implanted. 6. Having a pacemaker we will allow us more room with medications to treat his atrial flutter because he will not be at risk for going to slow. 7. Continue cardiac monitoring. (5) CAD in [place] artery: Patient has has not had any angina pectoris and his high sensitivity troponin I is unremarkable at 8.2 pg/mL. -- Continue Atorvastatin 80 mg daily. -- Resume beta tomas after pacemaker implanted. -- Continue SL NTG as directed and as needed. (6) Hypertension: BP is reasonably well controlled despite holding Toprol-XL and Diltiazem. -- Resume Toprol-XL and diltiazem after pacemaker is implanted. -- Low sodium diet. (7) Dyslipidemia: -- Continue Atorvastatin 80 mg daily. Thank you for asking us to see this patient in consultation. We will continue to follow along while hospitalized and will continue following him as an outpatient. All the patient's questions and his daughter's questions were answered to his satisfaction. Patient will be kept overnight after his pacemaker is implanted, have a device check the following morning and then may be discharged home if he is otherwise stable. History of Present Illness Reason for Consultation: -- Syncopal Episode on 05/26/23. -- Atrial Flutter with Slow V-Rate of 32 to 34 bpm. -- Shortness of Breath. Requesting Physician: April Marie MD Attending Physician: Kendall Coburn MD History of Present Illness Mr. Boone is a 72-year-old male with a history of CAD, Paroxysmal Atrial Flutter s/p Cardioversion 12/14/22, Moderate Concentric LVH, Hypertension, Type 2 Diabetes Mellitus, Diabetic Neuropathy, Stage 3 Chronic Kidney Disease, GERD, Dyslipidemia, Sleep Apnea, Hypothyroidism, and Sleep Apnea who was admitted on 05/28/23 after having a Syncopal Episode on 05/26/23, CLEMENS/SOB, and on admission he was noted to be markedly bradycardic in Atrial Flutter with a V-rate of 32 bpm. His Toprol XL and Diltiazem CD have been held for > 24 hours and despite holding these negative chronotropic medications his ventricular rate is ranging between 32-34 bpm last night, overnight, and this morning according to his cardiac mo nitor. His Lyme titer is negative. No reversible cause for his conduction disease has been identified. His EKG on admission shows atrial flutter with a slow ventricular response rate. Cardiac monitoring confirms the same. His high sensitivity troponin I is normal at 8.2 pg/mL. WBC count is 5.65, hemoglobin 13.0 g/dL, hematocrit is 38.6%, platelet count [id number]. Sodium is 141 mmol/L, potassium 4.5 mmol/L, BUN 31 mg/dL, creatinine 1.65 mg/dL, and his magnesium is normal at 2.1 mg/dL. TSH is elevated at 4.581 uIu/mL. Patient offers no complaints today. Patient is being seen in room 220-1, and his daughter is present. He still feels a little off with some occasional lightheadedness and intermittent dyspnea. He has not had any further syncopal episodes. Patient denies any chest pain, heaviness, tightness, pressure, or discomfort. He denies any exertional neck, jaw, back, or arm pain. He denies orthopnea or PND. He has not had any palpitations. Patient has not had any focal neurologic symptoms suggestive of stroke or mini stroke. He has been compliant with his medications. He has not missed any doses of Eliquis. He has had the following studies/procedures: 1. Cardiac Catheterization: He had a cardiac catheterization in the at [facility] and was told that he had nonobstructive CAD. 2.Echo 05/15/2015: EF 55%-60%. No definite regional wall motion abnormaliti es. Moderate LVH. Type 2 diastolic dysfunction. No significant valvular abnormalities. 3. Nuclear Stress 06/21/2015: No ischemic changes noted at 69% MPHR. 6 minutes on Marquis protocol. Nondiagnostic EKG due to failure to attain target heart rate. Small mild fixed defect inferior and inferolateral base. Gated images were not obtained due to abnormal EKG. No chest pain. 4. Dobutamine Stress Echo 12/04/2022: Negative stress echo for ischemia 96% MPHR. Indeterminate EKG due to LBBB. Atrial flutter at rest and throughout. Baseline EF 55%. Septal motion consistent with bundle-branch block. Moderate LVH. No significant valvular abnormalities. 5. Cardioversion 01/10/2023: Elective DC cardioversion for atrial flutter. No antiarrhythmic therapy. Family History: -- No known premature CAD. -- Mother at 65 with CHF. -- Father at 61 with brain aneurysm. Social History:Denies tobacco. Rare alcohol. No drugs. -- He is . He has 2 daughters and a son. 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 -- He enjoys hunting turkey, [employer], and [email or web address]. -- He denies any tobacco use. -- Rarely drinks alcohol. -- No drugs. Allergies Allergy/AdvReac Type Severity Reaction Status Date / Time No Known Drug Allergies Allergy Verified 05/20/23 14:28 Home Medications Medication Instructions Recorded Confirmed Type cholecalciferol (vitamin D3) 50 50 mcg PO QAM 12/18/19 05/28/23 History mcg (2,000 unit) capsule nitroglycerin 0.4 mg sublingual 0.4 mg sublingual Q5M PRN chest 11/07/21 05/28/23 Rx tablet pain #30 tabs blood-glucose meter (OneTouch #1 ea 07/02/22 05/28/23 Rx Ultra2 Meter) sildenafil 100 mg tablet 100 mg PO .COMPLEX #20 tabs 11/14/22 05/28/23 Rx fexofenadine 180 mg tablet 180 mg PO DAILY PRN Allergy 11/16/22 05/28/23 History Symptoms apixaban 5 mg tablet (Eliquis) 5 mg PO BID #180 tabs 12/10/22 05/28/23 Rx latanoprost 0.005 % eye drops 1 drp ophthalmic (eye) QPM 12/10/22 05/28/23 History metoprolol succinate 50 mg 50 mg PO QPM 01/03/23 05/28/23 History tablet,extended release 24 hr (Toprol XL) blood sugar diagnostic #100 ea 01/09/23 05/28/23 Rx atorvastatin 80 mg tablet 80 mg PO HS #90 tabs 03/04/23 05/28/23 Rx diltiazem HCl 240 mg capsule,24 240 mg PO QAM #90 caps 03/04/23 05/28/23 Rx hr,extended release famotidine 40 mg tablet 40 mg PO QPM #90 tabs 03/04/23 05/28/23 Rx glipizide 5 mg tablet 10 mg PO BID #360 tabs 03/04/23 05/28/23 Rx lancets 33 gauge (FabyTouch Delica #100 ea 03/13/23 05/28/23 Rx Plus Lancet) gabapentin 300 mg capsule 300 mg PO BID 90 days #180 caps 04/11/23 05/28/23 Rx escitalopram oxalate 20 mg tablet 20 mg PO QPM #90 tabs 04/26/23 05/28/23 Rx canagliflozin 300 mg tablet 300 mg PO QAM 05/28/23 05/28/23 History (Invokana) levothyroxine 75 mcg tablet 75 mcg PO DAILYBB 05/28/23 05/28/23 History metformin 750 mg tablet,extended 750 mg PO QPM #90 tabs 05/28/23 05/28/23 Rx release 24 hr Patient History Medical History Atrial flutter follows with Dr. Haney [facility] cardio Benign prostatic hyperplasia with urinary obstruction CAD in [place] artery CKD (chronic kidney disease) stage III -- follows with Dr. Hood Garrett Diabetic neuropathy, type II diabetes mellitus NIDDM Dyslipidemia Esophageal reflux Glaucoma Hearing deficit BL [place] History of COVID-19 10/2022: congestion, symptoms resolved Hypertension Hypothyroidism Lesion of bladder per pt's dtr, pt refused workup for lesion Sleep apnea no device Urinary frequency Surgical History History of cardiac cath - -- denies stent placement S/P adenoidectomy S/P appendectomy S/P tonsillectomy Family History Mother Diabetes Osteoporosis Congestive heart failure Cardiac disorder Hypertension Stroke Father Thyroid cancer Diabetes Cerebral aneurysm Cardiac disorder Hypertension Brother Cardiovascular disease Cardiac disorder Hypertension Sister Cardiac disorder Hypertension Other No family history of adverse response to anesthesia No family history of bleeding disorder Denies family history of Ovarian cancer Prostate cancer Myocardial infarction Breast cancer Colorectal cancer Social History Smoking Status: Former smoker Second Hand Exposure: No; Do You Dip or Chew Tobacco: No; Hx Alcohol Use: No Hx Substance Use: No Preferred Language: Persian Communication Ability: Effective Visual Impairment: No Limitations Hearing Ability: Use of Hearing Aid Medical Sonographer Required: No Beliefs That Will Affect Care: None marital status: Current Living Situation: Spouse current occupational status: retired 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 HEENT: Head is atraumatic, normocephalic. EOM's intact. Facies symmetric. No perioral cyanosis. NECK: No JVD. JVP is not elevated. Carotid upstrokes are + 2 bilaterally without bruits. CHEST/LUNGS: Clear to auscultation throughout all lung carter. No wheezes, rales, or crackles. CVS: S1 and S2 are regular, bradycardic at 33 bpm. No murmurs, gallops, or rubs. PMI is nonpalpable. No lifts, heaves, or thrills. No abdominal aortic or renal bruits. ABDOMINAL EXAM: Bowel sounds are present. No masses, organomegaly, or tenderness. EXTREMITIES: No clubbing or cyanosis. No edema. Intact radial pulses bilaterally. NEUROLOGIC EXAM: Patient is awake, alert, and oriented. Pleasant and cooperative. Answers questions appropriately. Speech is clear. Gait pattern was not assessed. EKG 05/29/23: -- Atrial flutter with V-rate of 32 bpm, RBBB and LAFB. -- When compared to 05/28/23 tracing; No significant change, V-rate has now slowed by 3 bpm. Results & Data Vital Signs (Past 12 Hours) Vital Signs Temp Pulse Resp BP Pulse Ox O2 Del Method 05/29/23 07:56 36.4 C L 33 L 18 136/70 95 Room Air 05/29/23 02:58 36.4 C L 34 L 18 133/70 91 Room Air 05/28/23 23:24 36.4 C L 35 L 18 107/55 L 94 Room Air Laboratory Results Laboratory Results - last 24 hr 05/28/23 05/28/23 05/28/23 11:55 12:40 12:40 WBC 6.93 RBC 4.53 L Hgb 13.6 L Hct 41.6 L MCV 91.8 MCH 30.0 MCHC 32.7 RDW Std Deviation 48.3 H RDW Coeff of Jean 14.6 H Plt Count 137 MPV 11.2 Immature Gran % (Auto) 0.3 Neut % (Auto) 67.0 Lymph % (Auto) 22.8 [place] % (Auto) 7.1 Eos % (Auto) 2.5 Baso % (Auto) 0.3 Neut # (Auto) 4.65 Lymph # (Auto) 1.58 [place] # (Auto) 0.49 Eos # (Auto) 0.17 Baso # (Auto) 0.02 Immature Gran # (Auto) 0.02 PT 12.5 H INR 1.2 H APTT 30.2 PTT Ratio 1.1 Sodium Potassium Chloride Carbon Dioxide Anion Gap BUN Creatinine Est Cr Clr Drug Dosing Est GFR ( Amer) Est GFR (Non-Af Amer) BUN/Creatinine Ratio Glucose POC Glucose Calcium Magnesium Total Bilirubin AST ALT Alkaline Phosphatase Troponin I High Sens Total Protein Albumin Globulin Albumin/Globulin Ratio TSH 4.581 H Lyme Disease IgG Ab Lyme Disease IgM Ab 05/28/23 05/28/23 05/28/23 12:40 12:40 18:43 WBC RBC Hgb Hct MCV MCH MCHC RDW Std Deviation RDW Coeff of Jean Plt Count MPV Immature Gran % (Auto) Neut % (Auto) Lymph % (Auto) [place] % (Auto) Eos % (Auto) Baso % (Auto) Neut # (Auto) Lymph # (Auto) [place] # (Auto) Eos # (Auto) Baso # (Auto) Immature Gran # (Auto) PT INR APTT PTT Ratio Sodium 141 Potassium 4.8 Chloride 110 H Carbon Dioxide 25 Anion Gap 6 BUN 32 H Creatinine 1.77 H Est Cr Clr Drug Dosing Not Reportable Est GFR ( Amer) 43.2 Est GFR (Non-Af Amer) 37.3 BUN/Creatinine Ratio 18.1 Glucose 137 H POC Glucose 126 H Calcium 9.4 Magnesium 2.1 Total Bilirubin 1.0 AST 21 ALT 37 Alkaline Phosphatase 90 Troponin I High Sens 8.2 Total Protein 6.9 Albumin 3.9 Globulin 3.0 Albumin/Globulin Ratio 1.3 TSH Lyme Disease IgG Ab Negative Lyme Disease IgM Ab Negative 05/28/23 05/29/23 05/29/23 20:15 07:15 07:15 WBC 5.65 RBC 4.23 L Hgb 13.0 L Hct 38.6 L MCV 91.3 MCH 30.7 MCHC 33.7 RDW Std Deviation 47.8 H RDW Coeff of Jean 14.4 Plt Count 118 L MPV 11.1 Immature Gran % (Auto) 0.2 Neut % (Auto) 63.3 Lymph % (Auto) 26.5 [place] % (Auto) 6.4 Eos % (Auto) 3.2 Baso % (Auto) 0.4 Neut # (Auto) 3.58 Lymph # (Auto) 1.50 [place] # (Auto) 0.36 Eos # (Auto) 0.18 Baso # (Auto) 0.02 Immature Gran # (Auto) 0.01 PT INR APTT PTT Ratio Sodium 141 Potassium 4.5 Chloride 111 H Carbon Dioxide 25 Anion Gap 5 BUN 31 H Creatinine 1.65 H Est Cr Clr Drug Dosing 50.1 Est GFR ( Amer) 47.0 Est GFR (Non-Af Amer) 40.6 BUN/Creatinine Ratio 18.8 Glucose 128 H POC Glucose 139 H Calcium 8.9 Magnesium 2.1 Total Bilirubin AST ALT Alkaline Phosphatase Troponin I High Sens Total Protein Albumin Globulin Albumin/Globulin Ratio TSH Lyme Disease IgG Ab Lyme Disease IgM Ab 05/29/23 07:47 WBC RBC Hgb Hct MCV MCH MCHC RDW Std Deviation RDW Coeff of Jean Plt Count MPV Immature Gran % (Auto) Neut % (Auto) Lymph % (Auto) [place] % (Auto) Eos % (Auto) Baso % (Auto) Neut # (Auto) Lymph # (Auto) [place] # (Auto) Eos # (Auto) Baso # (Auto) Immature Gran # (Auto) PT INR APTT PTT Ratio Sodium Potassium Chloride Carbon Dioxide Anion Gap BUN Creatinine Est Cr Clr Drug Dosing Est GFR ( Amer) Est GFR (Non-Af Amer) BUN/Creatinine Ratio Glucose POC Glucose 124 H Calcium Magnesium Total Bilirubin AST ALT Alkaline Phosphatase Troponin I High Sens Total Protein Albumin Globulin Albumin/Globulin Ratio TSH Lyme Disease IgG Ab Lyme Disease IgM Ab Diagnostic Findings CXR 05/28/23: There are low lung volumes. The cardiac silhouette is borderline enlarged. No pleural effusions. No pneumothorax. No evidence for pulmonary edema. No acute fractures identified.. There is a left basilar linear density. Otherwise, lungs are clear. IMPRESSION: 1. Low lung volumes with borderline enlargement of the cardiac silhouette. This is similar to the prior study. 2. A left basilar linear density favors subsegmental atelectasis or scarring. CT SCAN BRAIN 05/28/23: -- No acute intracranial hemorrhage, midline shift, intracranial mass, hydrocephalus, territorial ischemia or abnormal extra-axial collection. Involutional changes with chronic microvascular ischemic disease. -- The calvarium is intact. Subcutaneous edema within the right suboccipital tissues suggestive of a contusion. The paranasal sinuses, mastoid air cells, and middle ear cavities are clear. IMPRESSION: -- No acute intracranial abnormality. Medications Administered Medications cholecalciferol (vitamin D3) 50 mcg (2,000 unit) capsule 50 mcg PO QAM 12/18/19 [History Confirmed 05/28/23] nitroglycerin 0.4 mg sublingual tablet 0.4 mg sublingual Q5M PRN chest pain #30 tabs 11/07/21 [Rx Confirmed 05/28/23] blood-glucose meter (Identivuch Ultra2 Meter) #1 ea 07/02/22 [Rx Confirmed 05/28/23] sildenafil 100 mg tablet 100 mg PO .COMPLEX #20 tabs 11/14/22 [Rx Confirmed ] fexofenadine 180 mg tablet 180 mg PO DAILY PRN Allergy Symptoms 11/16/22 [History Confirmed 05/28/23] apixaban 5 mg tablet (Eliquis) 5 mg PO BID #180 tabs 12/10/22 [Rx Confirmed 05/28/23] latanoprost 0.005 % eye drops 1 drp ophthalmic (eye) QPM 12/10/22 [History Confirmed 05/28/23] metoprolol succinate 50 mg tablet,extended release 24 hr (Toprol XL) 50 mg PO QPM 01/03/23 [History Confirmed 05/28/23] blood sugar diagnostic #100 ea 01/09/23 [Rx Confirmed 05/28/23] atorvastatin 80 mg tablet 80 mg PO HS #90 tabs 03/04/23 [Rx Confirmed 05/28/23] diltiazem HCl 240 mg capsule,24 hr,extended release 240 mg PO QAM #90 caps 03/04/23 [Rx Confirmed 05/28/23] famotidine 40 mg tablet 40 mg PO QPM #90 tabs 03/04/23 [Rx Confirmed 05/28/23] glipizide 5 mg tablet 10 mg PO BID #360 tabs 03/04/23 [Rx Confirmed 05/28/23] lancets 33 gauge (OneTouch Delica Plus Lancet) #100 ea 03/13/23 [Rx Confirmed 05/28/23] gabapentin 300 mg capsule 300 mg PO BID 90 days #180 caps 04/11/23 [Rx Confirmed 05/28/23] escitalopram oxalate 20 mg tablet 20 mg PO QPM #90 tabs 04/26/23 [Rx Confirmed 05/28/23] canagliflozin 300 mg tablet (Invokana) 300 mg PO QAM 05/28/23 [History Confirmed 05/28/23] levothyroxine 75 mcg tablet 75 mcg PO DAILYBB 05/28/23 [History Confirmed 05/28/23] metformin 750 mg tablet,extended release 24 hr 750 mg PO QPM #90 tabs 05/28/23 [Rx Confirmed 05/28/23] Home Medications Acetaminophen (Acetaminophen 325 Mg Tab) 650 mg PO Q4H PRN PRN Reason: Pain or Fever Stop: 06/27/23 18:57 Apixaban (Apixaban 5 Mg Tablet) 5 mg PO BID SABA Stop: 06/27/23 20:59 Last Admin: 05/29/23 08:53 Dose: 5 mg Atorvastatin Calcium (Atorvastatin 40 Mg Tab) 80 mg PO HS SABA Stop: 06/27/23 20:59 Last Admin: 05/28/23 20:17 Dose: 80 mg Atropine Sulfate (Atropine Sulfate 0.1 Mg/Ml 5ml Syr) 0.5 mg IV Q15M PRN PRN Reason: HR<30 Stop: 06/27/23 19:05 Azelastine HCl (Azelastine Hcl 0.1% Nasal 200 Sprays/27,400 Mcg Btl) 1 sprays BLESSING BID PRN PRN Reason: nasal congestion Stop: 06/27/23 18:57 Dextrose (Dextrose 50% 50 Ml Syringe) 25 - 50 ml IV UD PRN; Protocol PRN Reason: Hypoglycemia Protocol Stop: 06/27/23 18:57 Escitalopram Oxalate (Escitalopram Oxalate 20 Mg Tab) 20 mg PO QPM SABA Stop: 06/27/23 20:59 Last Admin: 05/28/23 20:17 Dose: 20 mg Famotidine (Famotidine 40 Mg Tablet) 40 mg PO QPM SABA Stop: 06/27/23 20:59 Last Admin: 05/28/23 20:17 Dose: 40 mg Fexofenadine HCl (Fexofenadine Hcl 180 Mg Tab) 180 mg PO DAILY PRN PRN Reason: Allergy Symptoms Stop: 06/27/23 18:57 Gabapentin (Gabapentin 300 Mg Cap) 300 mg PO BID SABA Stop: 06/27/23 20:59 Last Admin: 05/29/23 08:53 Dose: 300 mg Glucagon (Glucagon For Inj 1 Mg Vial) 1 mg SQ UD PRN; Protocol PRN Reason: Hypoglycemia Protocol Stop: 06/27/23 18:57 Glucose (Glucose 10 Tab/Tube) 4 - 8 tab PO UD PRN; Protocol PRN Reason: Hypoglycemia Treatment Stop: 06/27/23 18:57 Glucose (Glucose 40% Gel 15 Gm Tube) 15 - 30 gm PO UD PRN; Protocol PRN Reason: Hypoglycemia Protocol Stop: 06/27/23 18:57 Insulin Aspart (Insulin Aspart Per Unit Charge) 0 units SC ACHS SABA Stop: 06/27/23 18:57 Last Admin: 05/29/23 08:40 Dose: Not Given Latanoprost (Latanoprost 0.005% Op Soln 2.5 Ml Btl) 1 drops OP QPM SABA Stop: 06/27/23 20:59 Last Admin: 05/28/23 20:18 Dose: 1 drops Levothyroxine Sodium (Levothyroxine Sodium 75 Mcg Tablet) 75 mcg PO DAILYBB SABA Stop: 06/28/23 06:29 Last Admin: 05/29/23 06:28 Dose: 75 mcg Miscellaneous (Carbohydrates For Hypoglycemia ) 15 - 30 gm PO UD PRN PRN Reason: Hypoglycemia Protocol Stop: 06/27/23 18:57 Nitroglycerin (Nitroglycerin Sl 0.4 Mg/Tab Tab) 0.4 mg SL Q5M PRN PRN Reason: chest pain Stop: 06/27/23 18:57 Vitamin D (Cholecalciferol 1,000 Units 25 Mcg Tab) 2,000 units PO QAM SABA Stop: 06/28/23 08:59 Last Admin: 05/29/23 08:53 Dose: 2,000 units PG Care Time/CCT Total # of Minutes Spent Total Time Spent with Patient: Total time spent is greater than 50% in coordination of care (as documented) at patient's floor/unit and/or counseling patient:52 [place] [address] INT INP/OBS CARE 2/55MIN Patient Type Established Exam Detailed Medical Decision Making Moderate Complexity Diagnoses Symptomatic bradycardia R00.1 Atrial flutter I48.92 Syncope R55 CLEMENS (dyspnea on exertion) R06.09 CAD in [place] artery I25.10 Hypertension I10 Dyslipidemia E78.5 Time Spent (min) 68
--- NOTE | 2023-05-29 12:53 | XCELERA ---
[id number] [id number]
--- NOTE | 2023-05-29 15:46 | Electrocardiogram Report ---
Test Reason : Blood Pressure : / mmHG Vent. Rate : 032 BPM Atrial Rate : 258 BPM P-R Int : 000 ms QRS Dur : 126 ms QT Int : 670 ms P-R-T Axes : 069 -52 004 degrees QTc Int : 489 ms Atrial flutter with A-V dissociation Right bundle branch block Left anterior fascicular block Bifascicular block Abnormal ECG When compared with ECG of 28-MAY-2023 12:35, No significant change was found Confirmed by Kendall Coburn ([id number]) on 05/29/2023 3:45:27 PM Referred By: REFERRED SELF Confirmed By:Kendall Coburn
--- NOTE | 2023-05-29 19:16 | Hospitalist Progress Note ---
Date of Service May 29, 2023 Assessment & Plan (1) Syncope: Plan: Likely secondary to bradycardia which is ongoing -continued stay on PCU for telemetry monitoring -continue to hold diltiazem and metoprolol for bradycardia -Check echocardiogram-normal -Check Lyme IgM and IgG in case of intermittent heart block-negative -Bedrest only for now given significant lightheadedness with standing -plan for pacer tomorrow (2) Bradycardia: Plan: With slow atrial flutter with heart rate in the low 30s and presented with syncope HRs remain in low 30s despite holding AV ziggy blocking agents for over 24 hrs continue Holding diltiazem and metoprolol plan for PPM tomorrow hold ELiquis for procedure, NPO after midnight Consult cardiology appreciated Monitor on telemetry (3) Atrial flutter: Plan: As noted above hold Eliquis for PPM (4) Stage III chronic kidney disease: Plan: Creatinine at baseline 1.7 and now 1.6 -Avoid nephrotoxins -renally dose meds when appropriate -follow BMP (5) CAD in [place] artery: Plan: Nonobstructive CAD from cardiac catheterization done in the . No angina typically but has had some lately with a slow atrial fibrillation Continue statin but holding beta-tomas for bradycardia holding Eliquis (6) Hypothyroidism: Plan: TSH here normal Continue home levothyroxine (7) Hypertension: Plan: Holding home metoprolol and diltiazem for bradycardia Holding Invokana Monitor blood pressures-normal (8) Diabetic neuropathy, type II diabetes mellitus: Plan: Continue gabapentin (9) Sleep apnea: Plan: Has attempted sleep study 2 times but not able to sleep long enough for adequate results May need supplemental O2 overnight (10) Type 2 diabetes mellitus: Plan: Holding home Invokana, glipizide, metformin while inpatient Hemoglobin A1c recently checked and elevated at 8.6% Accu-Cheks, diabetic diet, NovoLog supplemental insulin Add Lantus if needed (11) Benign prostatic hyperplasia with urinary obstruction: Plan: No acute issues (12) Depression: Plan: Continue home escitalopram (13) Vitamin B12 deficiency: Plan: With mild normocytic anemia with hemoglobin 13 Not on B12 supplement Follow-up as an outpatient (14) Vitamin D deficiency: Plan: Continue home vitamin D supplement (15) Esophageal reflux: Plan: Continue home Pepcid (16) Dyslipidemia: Plan: Continue home statin Plan DVT prophylaxis-Eliquis now on hold for procedure Disposition-continued stay on PCU DNR/DNI as discussed with patient but he is okay with medications for bradycardia. He would like his and daughter to be decision-makers if he is unable to make decisions for himself. Admission and Anticipated Discharge Date Admission Date: May 29, 2023 Subjective feeling better, no SOB, no CP, no lightheadedness moved bowels today, eating discussed care with Cardio-plan for pacer tomorrow Tele with aflutter, rates low 30s Physical Exam Constitutional: WD/WN, vitals as above Neck: trachea midline, no thyromegaly Respiratory: normal respiratory effort, lungs clear to auscultation Cardiovascular: Rate/Rhythm: + bradycardic and + irregularly irregular Heart Sounds: no murmur Chest (Breasts): Chest: normal inspection of chest Gastrointestinal (Abdomen): normal bowel sounds, soft, nontender, no hepatosplenomegaly Musculoskeletal: Extremities: extremities normal to inspection; no cyanosis and no clubbing Skin: no rashes, warm and dry Neurologic: moves all extremities and awake; no focal motor deficits Psychiatric: A+Ox3, euthymic affect Lymphatic: no lymphedema Results & Data Results & Data Vital Signs (Past 12 Hours) Vital Signs Temp Pulse Pulse Resp BP Pulse Ox O2 Del Method 05/29/23 16:06 35 L 05/29/23 15:38 36.3 C L 36 L 18 127/66 95 Room Air 05/29/23 11:56 32 L 05/29/23 11:32 36.2 C L 32 L 18 123/67 98 Room Air 05/29/23 07:56 36.4 C L 33 L 18 136/70 95 Room Air PG Care Time/CCT Total # of Minutes Spent Total Time Spent with Patient: Total time spent is greater than 50% in coordination of care (as documented) at patient's floor/unit and/or counseling patient: Coding Level of Care Code 27911 SUB INP/OBS CARE 2/35MIN Diagnoses Syncope R55 Bradycardia R00.1 Atrial flutter I48.92 Stage III chronic kidney disease N18.3 CAD in [place] I25.10 Hypothyroidism E03.9 Hypertension I10 Diabetic neuropathy, type II diabetes mellitus E11.40 Sleep apnea G47.30 Type 2 diabetes mellitus E11.9 Benign prostatic hyperplasia with urinary obstruction N40.1; N13.8 Depression F32.9 Vitamin B12 deficiency E53.8 Vitamin D deficiency E55.9 Esophageal reflux K21.9 Dyslipidemia E78.5
[2023-05-29] MEDS: LATANOPROST 0.005% OP SOLN 2.5 ML BTL OP SCH (20:12)
[2023-05-29] MEDS: ATORVASTATIN 40 MG TAB PO SCH (20:13)
[2023-05-29] MEDS: FAMOTIDINE 40 MG TABLET PO SCH (20:13)
[2023-05-29] MEDS: ESCITALOPRAM OXALATE 20 MG TAB PO SCH (20:14)
[2023-05-30] MEDS: LEVOTHYROXINE SODIUM 75 MCG TABLET PO SCH (06:16)
[2023-05-30] MEDS: INSULIN ASPART PER UNIT CHARGE SC SCH ×4 (07:48→20:33)
[2023-05-30 08:40] LABS: Basophils # (auto) 0.02 K/uL (0-0.2); Basophils % (auto) 0.3 %; Eosinophils # (auto) 0.16 K/uL (0-0.50); Eosinophils % (auto) 2.7 %; Immature Granulocytes # (auto) 0.02 K/uL (0.01-0.20); Immature Granulocytes % (auto) 0.3 %; Lymphocytes # (auto) 1.49 K/uL (1.2-3.4); Lymphocytes % (auto) 25.5 %; Mean Corpuscular Hemoglobin 30.7 pg (25.0-34.0); Mean Corpuscular Hgb Conc 34.2 g/dL (32.0-36.0); Mean Corpuscular Volume 89.6 fL (80.0-100.0); Mean Platelet Volume 10.6 fL (9.4-12.4); Monocytes # (auto) 0.49 K/uL (0.11-0.59); Monocytes % (auto) 8.4 %; Neutrophils # (auto) 3.67 K/uL (1.40-6.50); Neutrophils % (auto) 62.8 %; Platelet Count 114 K/uL (130-400); RDW Coefficient of Variation 14.1 % (11.5-14.5); RDW Standard Deviation 45.4 fL (36.4-46.3); Red Blood Count 4.24 M/uL (4.70-6.10); White Blood Count 5.85 K/ul (4.8-10.8)
[2023-05-30 08:54] LABS: BUN Creatinine Ratio 19.6 (10-20); Calcium 8.7 mg/dl (8.6-10.3); Est GFR (African American) 47.7 ml/min; Est GFR (Non-African American) 41.2 ml/min; Potassium 4.1 mmol/L (3.5-5.1)
[2023-05-30] MEDS: GABAPENTIN 300 MG CAP PO SCH ×2 (09:27→20:08)
[2023-05-30] MEDS: CHOLECALCIFEROL 1,000 UNITS 25 MCG TAB PO SCH (09:27)
[2023-05-30] MEDS ORDERED: LIDOCAINE 1% LOCAL 20 ML VIAL ONE (12:44)
[2023-05-30] MEDS ORDERED: BUPIVACAINE 0.25% PF 30 ML VIAL ONE (12:45)
[2023-05-30] MEDS ORDERED: WATER, STERILE FOR INJ 10 ML VIAL ONE (12:45)
[2023-05-30] MEDS ORDERED: VANCOMYCIN HCL 1000MG/20ML VIAL ONE (12:45)
--- NOTE | 2023-05-30 15:23 | Pre Anesthesia Assessment ---
Date of Service May 30, 2023 Pre Sedation Assessment Vital Signs Temp Pulse Pulse Resp BP Pulse Ox O2 Del Method 05/30/23 15:09 35 L 18 130/67 96 Room Air 05/30/23 11:44 36.5 C 34 L 20 137/68 96 Room Air 05/30/23 08:08 36.3 C L 34 L 18 142/71 H 96 Room Air 05/29/23 21:59 36 L 05/30/23 03:10 36.7 C 33 L 18 133/68 95 Room Air 05/30/23 00:20 36.8 C 32 L 18 112/63 97 Room Air 05/29/23 19:22 36.6 C 38 L 20 146/72 H 96 Room Air 05/29/23 16:06 35 L 05/29/23 15:38 36.3 C L 36 L 18 127/66 95 Room Air Cardiovascular + bradycardic Respiratory + respiratory effort normal Pre-Sedation Airway Assessment Smoking Status: Former smoker Hx Sleep Apnea: No Hx Difficult Intubation: No Short, Thick Neck: No Thyromental Distance: > or= 3.5 Finger Breadths Oral Cavity: + Chipped Teeth Mallampati Class: II ASA: ASA3 NPO Status Date of Last Intake of Fluids: 05/29/23 Time of Last Intake of Fluids: 22:00 Date of Last Intake of Solid Food: 05/29/23 Time of Last Intake of Solid Foods: 22:00 Procedure Planning Contraindications for Sedation: none Current Medications Reviewed: Yes Notes The planned sedation has been discussed with the patient. Informed Consent was obtained. I have identified the patient, determined the appropriateness of sedation and have assessed the patient immediately prior to the procedure. All medicine(s) and interventions are by my order.
[2023-05-30] MEDS ORDERED: fentaNYL citrate PF 100 MCG/2 ML VIAL ONE (15:26)
[2023-05-30] MEDS ORDERED: MIDAZOLAM HCL 5 MG/ML 1 ML VIAL ONE (15:26)
[2023-05-30] MEDS ORDERED: ceFAZolin 330 MG/ML 1 GM VIAL ONE (15:26)
--- NOTE | 2023-05-30 15:49 | Electrocardiogram Report ---
Test Reason : Blood Pressure : / mmHG Vent. Rate : 034 BPM Atrial Rate : 264 BPM P-R Int : 000 ms QRS Dur : 126 ms QT Int : 708 ms P-R-T Axes : 089 -54 002 degrees QTc Int : 532 ms Atrial flutter Right bundle branch block Left anterior fascicular block Bifascicular block Abnormal ECG When compared with ECG of 29-MAY-2023 06:23, Sinus rhythm is no longer with A-V dissociation Confirmed by Kendall Coburn ([id number]) on 05/30/2023 3:49:22 PM Referred By: REFERRED SELF Confirmed By:Kendall Coburn
--- NOTE | 2023-05-30 16:55 | Post Anesthesia Assessment ---
Date of Service May 30, 2023 Post Sedation Assessment Vital Signs Temp Pulse Pulse Resp BP Pulse Ox O2 Del Method 05/30/23 15:09 35 L 18 130/67 96 Room Air 05/30/23 11:44 36.5 C 34 L 20 137/68 96 Room Air 05/30/23 08:08 36.3 C L 34 L 18 142/71 H 96 Room Air 05/29/23 21:59 36 L 05/30/23 03:10 36.7 C 33 L 18 133/68 95 Room Air 05/30/23 00:20 36.8 C 32 L 18 112/63 97 Room Air 05/29/23 19:22 36.6 C 38 L 20 146/72 H 96 Room Air Recovery Score Activity: Moves 4 extremities Respiration: Deep Breath/Cough Circulation: +/-20% PreAnes Value Consciousness: Fully Awake Oxygen Saturation: > 92% On Room Air Discharge Sedation Level of Care: Fast Track Phase II Post Sedation Plan On clinical assessment, the patient appears to have tolerated the sedation witho ut complications. Patient is recovering as anticipated. Patient will continue to be monitored by nursing and may be discharged when sedation discharge criteria are met per below protocol. Upon Completions of procedure up to 15 minutes continue every 5 minute vital signs and the P.A.R. score; then discharge to a Phase I or Fast Track to Phase II per the following guidelines: * Discharge Patient to appropriate Phase II area if PAR is 8 or greater or return to pre- procedure baseline. The post - procedure orders will be as directed. * If PAR score is less than 8 or not return to pre-procedure baseline then patient will follow Phase I monitoring till PAR is reached for Phase II. The Phase I may be done in procedure room or may call to secure a Phase I area. * If naloxone or flumazenil are used for reversal, hold in Phase I for continued monitoring from when last reversal dose was given for a minimum of 60 minutes or longer pending the nurse and/or physician discretion of patient condition before discharge to Phase II. Please call the Sedation Physician to re-evaluate and complete post-note for discharge to Phase II area. Do NOT discharge from procedure sedation or Phase 1 until post- sedation evaluation note is complete by procedure /sedation MD Sedation Discharge Instructions to be given to the patient at discharge to home.
--- NOTE | 2023-05-30 16:55 | Electrophysiology Report ---
Date of Service May 30, 2023 Electrophysiology Procedure Electrophysiology Procedure Report Procedure performed: Implantation of dual-chamber permanent pacemaker with left bundle pacing lead Staff business technology professor: Antonino Gomez MD Indication: The patient is a 72-year-old gentleman who presented to the hospital with symptomatic bradycardia. Due to symptomatic nonreversible AV node dysfunction he was felt to be a good candidate for permanent pacemaker. Dual- chamber device was selected and as he is likely to be back in sinus rhythm and we wish to maintain AV synchrony. Procedure in detail: The patient was informed of the risks benefits and alternatives to the intended procedure and she wished to proceed. He was taken to the electrophysiology suite in a fasting state. A preoperative antibiotic had been administered. The patient was monitored electrocardiographically throughout today's procedure and conscious sedation was administered per protocol. The left upper pectoral area is prepped and draped in usual sterile fashion. This area was anesthetized using subcutaneous administration of a xylocaine solution. An incision was made at this site and carried down to the prepectoralis fascia using sharp dissection. Electrocautery was also employed for dissection as well as for hemostasis. A device pocket was fashioned tissues above the pectoralis muscle. Subsequent to this maneuver the left axillary vein was accessed using modified Seldinger technique. Sheaths were placed over guidewires at this site and used to facilitate passage of the pacing leads to the respective chambers under fluoroscopic guidance. This included right atrial and right ventricular leads. Adequate sensing and threshold parameters were obtained prior to Active fixation of the leads to the endocardial surface. The proximal portion leads were then sutured the prepectoral fascia using nonabsorbable suture. The device pocket was irrigated with antibiotic solution. The leads were then attached to the device. The device and leads were then placed in the pocket and pocket was closed in 3 layers of absorbable suture. Steri-Strips and sterile dressing were applied. The device was tested noninvasively prior to conclusion the procedure. The patient tolerated procedure well there no immediate complications. Equipment used: New pulse generator: [employer] Manager [employer]. Model number: [id number] serial number [id number] Right atrial lead: Dental Manager [employer]. Model number: [id number] serial number [id number] Right ventricular lead: Dental Manager [employer]. Model number: [id number] serial number [id number] Measured data: Right atrial lead: Patient was in atrial flutter. Flutter waves measure 1.5 mV. Pacing impedance was 709 ohms Right ventricular lead: No intrinsic R waves are measured. Pacing threshold is 1.1 V at 0.5 ms with a pacing impedance of 761 ohms Impression: Successful implantation of dual-chamber permanent pacemaker with left bundle pacing lead [facility] Electrophysiology codes Pacing Procedure 1: Pacin Insert/Replace Pacer A & V PG Moderate Sedation Codes Moderate Sedation Codes Procedure 1: Sedation/Anesthesia: 42535 Mod Sedation by the same physician;Init15 Min Child Age 5 & Up Procedure 2: Sedation/Anesthesia: 75279 Mod Sedation by the same physician; Ea [id number] Minutes
[2023-05-30] MEDS ORDERED: oxyCODONE HCL IR 5 MG TAB (IMMEDIATE RELEASE) PO PRN (16:56)
[2023-05-30] MEDS: ACETAMINOPHEN 325 MG TAB PO PRN (20:07)
[2023-05-30] MEDS: ATORVASTATIN 40 MG TAB PO SCH (20:09)
[2023-05-30] MEDS: ESCITALOPRAM OXALATE 20 MG TAB PO SCH (20:09)
[2023-05-30] MEDS: FAMOTIDINE 40 MG TABLET PO SCH (20:10)
[2023-05-30] MEDS: LATANOPROST 0.005% OP SOLN 2.5 ML BTL OP SCH (20:10)
--- NOTE | 2023-05-30 20:44 | Hospitalist Progress Note ---
Date of Service May 30, 2023 Assessment & Plan (1) Syncope: Plan: Likely secondary to bradycardia in the low 30s with Aflutter with slow VR Now s/p PPM on 05/30, much improved, pacing in the 60s -continued stay on PCU for telemetry monitoring -continue to hold diltiazem and metoprolol but can likely restart metoprolol tomorrow -Checked echocardiogram-normal -Checked Lyme IgM and IgG in case of intermittent heart block-negative -can now get out of bed s/p pacer placement (2) Bradycardia: Plan: With slow atrial flutter with heart rate in the low 30s and presented with syncope HRs remain in low 30s despite holding AV ziggy blocking agents for over 48 hrs s/p PPM as above, now pacing in the 60s, much improved continue Holding diltiazem but can restart metoprolol tomorrow continue to hold ELiquis post procedure Consult cardiology appreciated Monitor on telemetry CXR in AM, pacer check in AM pain control for pacer site arm restrictions f/u outpatient with Cardiology (3) Atrial flutter: Plan: As noted above hold Eliquis for PPM (4) Stage III chronic kidney disease: Plan: Creatinine at baseline 1.7 and now 1.6 and stable -Avoid nephrotoxins -renally dose meds when appropriate -follow BMP (5) CAD in [place] artery: Plan: Nonobstructive CAD from cardiac catheterization done in the . Continue statin but holding beta-tomas for bradycardia holding Eliquis (6) Hypothyroidism: Plan: TSH here normal Continue home levothyroxine (7) Hypertension: Plan: Holding home metoprolol and diltiazem for bradycardia Holding Invokana Monitor blood pressures-normal (8) Diabetic neuropathy, type II diabetes mellitus: Plan: Continue gabapentin (9) Sleep apnea: Plan: Has attempted sleep study 2 times but not able to sleep long enough for adequate results May need supplemental O2 overnight (10) Type 2 diabetes mellitus: Plan: Holding home Invokana, glipizide, metformin while inpatient Hemoglobin A1c recently checked and elevated at 8.6% Accu-Cheks, diabetic diet, NovoLog supplemental insulin Add Lantus if needed -none needed (11) Benign prostatic hyperplasia with urinary obstruction: Plan: No acute issues (12) Depression: Plan: Continue home escitalopram (13) Vitamin B12 deficiency: Plan: With mild normocytic anemia with hemoglobin 13, stable from previous, no bleeding Not on B12 supplement Follow-up as an outpatient (14) Vitamin D deficiency: Plan: Continue home vitamin D supplement (15) Esophageal reflux: Plan: Continue home Pepcid (16) Dyslipidemia: Plan: Continue home statin Plan DVT prophylaxis-Eliquis now on hold for procedure Disposition-continued stay on PCU but likely dc to home tomorrow after pacer check DNR/DNI as discussed with patient but he is okay with medications for bradycardia. He would like his and daughter to be decision-makers if he is unable to make decisions for himself. Admission and Anticipated Discharge Date Admission Date: May 29, 2023 Subjective Pt seen after return from pacer placement. He is having some soreness at the surgical site but otherwise feeling great. Tele earlier with aflutter and rate low 30s, now paced with underlying aflutter , rate 60 Physical Exam Constitutional: WD/WN, vitals as above Neck: trachea midline, no thyromegaly Respiratory: normal respiratory effort, lungs clear to auscultation Cardiovascular: Rate/Rhythm: regular rate and regular rhythm Extremities: no edema Chest (Breasts): Chest: + pacemaker (left anterior chest wall) Musculoskeletal: Extremities: extremities normal to inspection; no cyanosis and no clubbing Skin: no rashes, warm and dry Neurologic: moves all extremities and awake; no focal motor deficits Psychiatric: A+Ox3, euthymic affect Lymphatic: no lymphedema Results & Data Results & Data Vital Signs (Past 12 Hours) Vital Signs Temp Pulse Resp BP BP Pulse Ox O2 Del Method 05/30/23 19:45 36.3 C L 63 22 143/83 H 94 Room Air 05/30/23 18:10 36.2 C L 60 18 164/82 H 92 Room Air 05/30/23 17:40 60 20 160/89 H 95 Room Air 05/30/23 17:00 Room Air 05/30/23 17:10 36.4 C L 60 20 159/91 H 95 Room Air 05/30/23 15:09 35 L 18 130/67 96 Room Air 05/30/23 11:44 36.5 C 34 L 20 137/68 96 Room Air Laboratory Results CBC, BMP, reviewed PG Care Time/CCT Total # of Minutes Spent Total Time Spent with Patient: Total time spent is greater than 50% in coordination of care (as documented) at patient's floor/unit and/or counseling patient: Coding Level of Care Code 31919 SUB INP/OBS CARE 50MIN Diagnoses Syncope R55 Bradycardia R00.1 Atrial flutter I48.92 Stage III chronic kidney disease N18.3 CAD in [place] artery I25.10 Hypothyroidism E03.9 Hypertension I10 Diabetic neuropathy, type II diabetes mellitus E11.40 Sleep apnea G47.30 Type 2 diabetes mellitus E11.9 Benign prostatic hyperplasia with urinary obstruction N40.1; N13.8 Depression F32.9 Vitamin B12 deficiency E53.8 Vitamin D deficiency E55.9 Esophageal reflux K21.9 Dyslipidemia E78.5
[2023-05-30] MEDS ORDERED: ceFAZolin 2000MG 2,000 MG/15 ML SYR IV ONE (23:00)
[2023-05-31] MEDS: ACETAMINOPHEN 325 MG TAB PO PRN ×2 (00:38→09:30)
[2023-05-31] MEDS: LEVOTHYROXINE SODIUM 75 MCG TABLET PO SCH (06:39)
[2023-05-31 06:47] LABS: Basophils # (auto) 0.01 K/uL (0-0.2); Basophils % (auto) 0.2 %; Eosinophils # (auto) 0.17 K/uL (0-0.50); Eosinophils % (auto) 3.2 %; Hematocrit (blood only) 39.1 % (42.0-52.0); Hemoglobin 13.3 g/dl (14.0-18.0); Immature Granulocytes # (auto) 0.01 K/uL (0.01-0.20); Immature Granulocytes % (auto) 0.2 %; Lymphocytes # (auto) 1.29 K/uL (1.2-3.4); Lymphocytes % (auto) 24.2 %; Mean Corpuscular Hemoglobin 30.6 pg (25.0-34.0); Mean Corpuscular Volume 89.9 fL (80.0-100.0); Mean Platelet Volume 10.2 fL (9.4-12.4); Monocytes # (auto) 0.47 K/uL (0.11-0.59); Monocytes % (auto) 8.8 %; Neutrophils # (auto) 3.38 K/uL (1.40-6.50); Neutrophils % (auto) 63.4 %; Platelet Count 116 K/uL (130-400); RDW Coefficient of Variation 13.9 % (11.5-14.5); Red Blood Count 4.35 M/uL (4.70-6.10); White Blood Count 5.33 K/ul (4.8-10.8)
[2023-05-31 07:42] LABS: BUN Creatinine Ratio 18.8 (10-20); Calcium 8.5 mg/dl (8.6-10.3); Creatinine Clr Calc Pharmacy 55.6 ml/min; Est GFR (African American) 53.2 ml/min; Est GFR (Non-African American) 45.9 ml/min; Magnesium 2.1 mg/dl (1.7-2.4); Potassium 4.1 mmol/L (3.5-5.1)
[2023-05-31] MEDS: GABAPENTIN 300 MG CAP PO SCH (07:52)
[2023-05-31] MEDS: CHOLECALCIFEROL 1,000 UNITS 25 MCG TAB PO SCH (07:52)
[2023-05-31] MEDS: INSULIN ASPART PER UNIT CHARGE SC SCH ×2 (07:55→12:23)
--- NOTE | 2023-05-31 09:32 | Cardiology Progress Note ---
Date of Service May 31, 2023 Assessment & Plan (1) Atrial flutter: (2) Symptomatic bradycardia: Plan 1. Symptomatic bradycardia: He underwent successful implant of a dual-chamber permanent pacemaker yesterday. Normal function of the device. He will be safe for discharge with the following restrictions: Keep the wound dry and Steri- Strips intact until follow-up arranged in our clinic next week. No lifting left arm above the shoulder behind the neck for 6 weeks. 2. Atrial flutter: He can restart his Eliquis on SaturdayJune 02. He will follow up in our clinic for additional recommendations regarding another cardioversion. Admission and Anticipated Discharge Date Admission Date: May 29, 2023 Subjective This morning patient claimed he feeling well. Minimal discomfort at the device implant site. Review of Systems Review of Systems: Per HPI Physical Exam Physical Exam: The patient is alert and oriented. Mood and affect appeared normal. He answered all questions appropriately. HEENT: Pupils are equal and reactive to light and accommodation. Extraocular movements are intact. The sclerae are anicteric. Neuro: Cranial nerves intact Well-healed device implant site in left upper pectoral area. Minimal ecchymosis. No hematoma Normal respiratory effort Results & Data Vital Signs (Past 12 Hours) Vital Signs Temp Pulse Pulse Resp BP Pulse Ox O2 Del Method 05/31/23 06:59 36.4 C L 60 18 148/86 H 95 Room Air 05/31/23 07:24 60 05/31/23 03:00 36.3 C L 60 16 130/77 96 Room Air 05/30/23 23:39 60 05/30/23 22:11 36.5 C 60 20 139/81 95 Room Air Diagnostic Findings I reviewed the chest x-ray which demonstrated good lead position without evidence of pneumothorax I performed a complete device interrogation which revealed good function of both the atrial and ventricular leads. (1) Atrial flutter Atrial flutter type: unspecified Qualified Code(s): I48.92 - Unspecified atrial flutter
--- NOTE | 2023-05-31 09:47 | XRay Report ---
XR chest 2V PA/lateral CLINICAL HISTORY: EXACT TIME ORDERED Evaluate for pneumothorax and l TECHNIQUE: 2 views of the chest were obtained. Comparison: Comparison is made to chest radiograph 05/28/2023 FINDINGS: Interval placement of dual-lead pacemaker. The cardiomediastinal silhouette is normal. Faint bibasila r airspace opacities are seen. No evidence of pleural effusion or pneumothorax. IMPRESSION: 1. New pacemaker is seen with leads in satisfactory position. No evidence of pneumothorax. 2. Faint bilateral airspace opacities compatible with atelectasis, aspiration, and/or pneumonia. ACT 112: Negative or not required by law. Electronically signed by: Juanito Hudson M.D. 05/31/2023 9:45 AM
--- NOTE | 2023-05-31 11:29 | Discharge Summary ---
Discharge Summary Date of Service May 31, 2023 Notes For Next Care Provider Medication Changes From Visit HOLD Eliquis until 06/02/23 Admission HPI Per Admitting Provider This patient is a 72-year-old male with a history of atrial flutter requiring previous cardioversion, LBBB, CKD stage III, NATALIA, DM2 with neuropathy, CAD, BPH, hypothyroidism, depression, HTN, GERD, vitamin B12 deficiency, vitamin D deficiency, who presents to the ER with shortness of breath and an episode of syncope that occurred on 05/26. With his episode of syncope, he notes that he was walking through his kitchen to let his dog out and fell onto the floor. No pain or injuries from the fall. Since then, he has had persistent shortness of breath with exertion as well as complaints of fatigue. Denies any orthopnea, weight gain, or leg swelling. He does take Eliquis. In the ER, he was found to have heart rate in the 30s with slow atrial flutter. Principal Dx & Hospital Course #1 = Principal Diagnosis (1) Syncope: Likely secondary to bradycardia in the low 30s with Aflutter with slow VR Now s/p PPM on 05/30, much improved, pacing in the 60s -held diltiazem and metoprolol but can restart both on discharge given his HTN and LVH -Checked echocardiogram-normal EF -Checked Lyme IgM and IgG in case of intermittent heart block-negative -feeling well now, no further lightheadedness, fatigue, or dyspnea with ambulation (2) Bradycardia: With slow atrial flutter with heart rate in the low 30s and presented with syncope HRs remain in low 30s despite holding AV ziggy blocking agents for over 48 hrs s/p PPM as above, now pacing in the 60s, much improved restart diltiazem and metoprolol on discharge for LVH and HTN continue to hold ELiquis post procedure until 06/02/23 Consult cardiology appreciated CXR with likely atelectasis with faint basilar opacities but no PTX Pacer check functioning properly prior to discharge Wound looks good with steri strips pain control for pacer site with tylenol arm restrictions f/u outpatient with Cardiology (3) Atrial flutter: As noted above hold Eliquis for PPM and restart 06/02 (4) Stage III chronic kidney disease: Creatinine at baseline 1.7 and now 1.49 and stable -Avoid nephrotoxins -renally dose meds when appropriate follow as outpt (5) CAD in [place] artery: Nonobstructive CAD from cardiac catheterization done in the . Continue statin and beta-tomas holding Eliquis (6) Hypothyroidism: TSH here normal Continue home levothyroxine (7) Hypertension: ok to restart home metoprolol and diltiazem on discharge continue Invokana Monitor blood pressures-normal to mildly elevated since holding all meds (8) Diabetic neuropathy, type II diabetes mellitus: Continue gabapentin (9) Sleep apnea: Has attempted sleep study 2 times but not able to sleep long enough for adequate results May need supplemental O2 overnight-work up as outpt (10) Type 2 diabetes mellitus: restart home Invokana, glipizide, metformin after discahrge Hemoglobin A1c recently checked and elevated at 8.6% Accu-Cheks, diabetic diet (11) Benign prostatic hyperplasia with urinary obstruction: No acute issues (12) Depression: Continue home escitalopram (13) Vitamin B12 deficiency: With mild normocytic anemia with hemoglobin 13, stable from previous, no bleeding Not on B12 supplement Follow-up as an outpatient (14) Vitamin D deficiency: Continue home vitamin D supplement (15) Esophageal reflux: Continue home Pepcid (16) Dyslipidemia: Continue home statin Plan DVT prophylaxis-Eliquis on hold for procedure Disposition-dc to home DNR/DNI as discussed with patient but he is okay with medications for bradycardia. He would like his and daughter to be decision-makers if he is unable to make decisions for himself. Discharge Exam Constitutional WD/WN, vitals as above Neck trachea midline, no thyromegaly Respiratory normal respiratory effort, lungs clear to auscultation Cardiovascular Rate/Rhythm: regular rate and regular rhythm Heart Sounds: no murmur Extremities: no edema Chest (Breasts) Chest: normal inspection of chest and + pacemaker (left anterior chest wall) Gastrointestinal (Abdomen) normal bowel sounds, soft, nontender, no hepatosplenomegaly Musculoskeletal Extremities: extremities normal to inspection; no cyanosis and no clubbing Skin no rashes, warm and dry Neurologic moves all extremities and awake; no focal motor deficits Psychiatric A+Ox3, euthymic affect Lymphatic no lymphedema Updated Medication List Medication Instructions Recorded Confirmed Type cholecalciferol (vitamin D3) 50 50 mcg PO QAM 12/18/19 05/28/23 History mcg (2,000 unit) capsule nitroglycerin 0.4 mg sublingual 0.4 mg sublingual Q5M PRN chest 11/07/21 05/28/23 Rx tablet pain #30 tabs blood-glucose meter (OneTouch #1 ea 07/02/22 05/28/23 Rx Ultra2 Meter) sildenafil 100 mg tablet 100 mg PO .COMPLEX #20 tabs 11/14/22 05/28/23 Rx fexofenadine 180 mg tablet 180 mg PO DAILY PRN Allergy 11/16/22 05/28/23 History Symptoms latanoprost 0.005 % eye drops 1 drp ophthalmic (eye) QPM 12/10/22 05/28/23 History metoprolol succinate 50 mg 50 mg PO QPM 01/03/23 05/28/23 History tablet,extended release 24 hr (Toprol XL) blood sugar diagnostic #100 ea 01/09/23 05/28/23 Rx atorvastatin 80 mg tablet 80 mg PO HS #90 tabs 03/04/23 05/28/23 Rx diltiazem HCl 240 mg capsule,24 240 mg PO QAM #90 caps 03/04/23 05/28/23 Rx hr,extended release famotidine 40 mg tablet 40 mg PO QPM #90 tabs 03/04/23 05/28/23 Rx glipizide 5 mg tablet 10 mg PO BID #360 tabs 03/04/23 05/28/23 Rx lancets 33 gauge ([facility] #[facility] ea 03/13/23 05/28/23 Rx Plus Lancet) gabapentin 300 mg capsule 300 mg PO BID 90 days #180 caps 04/11/23 05/28/23 Rx escitalopram oxalate 20 mg tablet 20 mg PO QPM #90 tabs 04/26/23 05/28/23 Rx canagliflozin 300 mg tablet 300 mg PO QAM 05/28/23 05/28/23 History (Invokana) levothyroxine 75 mcg tablet 75 mcg PO DAILYBB 05/28/23 05/28/23 History metformin 750 mg tablet,extended 750 mg PO QPM #90 tabs 05/28/23 05/28/23 Rx release 24 hr apixaban 5 mg tablet (Eliquis) 5 mg PO BID #180 tabs 05/29/23 Rx Hospital Stay Data Consultations 05/28/23 14:00 ED Decision to Admit Stat 05/28/23 14:21 ED Decision to Admit Stat 05/28/23 18:58 Consult Cardiology Routine Procedures Performed Operation Date: 05/30/23 13:00 Actual Procedures p Pacer with A/V Leads (Dual) - Antonino Gomez MD Diagnostic Imagining Performed 05/28/23 12:59 CT head/brain wo con Stat 05/30/23 07:00 EP Lab Images for PACS ONCE ECHO CXR Pending Results Patient Have Any Pending Studies at Discharge: No Discharge Instructions Given to Patient (Per Discharging Provider) You were admitted after passing out and were found to have a very low heart rate. This did not improve on its own and you had a pacemaker placed. Do not resume Eliquis until SaturdayJune 02. Please follow up with Cardiology within 1-2 weeks. Total Time Total Time Spent Total Time Spent (In Minutes): 35 min Total Time Includes: Examination of the Patient, Discharge Planning, Medication Reconciliation and Communication With Other Providers (Cardiology) Coding Level of Care Code 02930 INP/OBS DISCH >30 MIN Diagnoses Syncope R55 Bradycardia R00.1 Atrial flutter I48.92 Stage III chronic kidney disease N18.3 CAD in [place] artery I25.10 Hypothyroidism E03.9 Hypertension I10 Diabetic neuropathy, type II diabetes mellitus E11.40 Sleep apnea G47.30 Type 2 diabetes mellitus E11.9 Benign prostatic hyperplasia with urinary obstruction N40.1; N13.8 Depression F32.9 Vitamin B12 deficiency E53.8 Vitamin D deficiency E55.9 Esophageal reflux K21.9 Dyslipidemia E78.5
--- NOTE | 2023-05-31 12:39 | Electrocardiogram Report ---
Test Reason : Blood Pressure : / mmHG Vent. Rate : 060 BPM Atrial Rate : 260 BPM P-R Int : 000 ms QRS Dur : 134 ms QT Int : 516 ms P-R-T Axes : 000 144 -55 degrees QTc Int : 516 ms Ventricular-paced rhythm Atrial flutter Abnormal ECG When compared with ECG of 30-MAY-2023 06:37, Electronic ventricular pacemaker now present Vent. rate has increased BY 26 BPM Confirmed by Kendall Coburn ([id number]) on 05/31/2023 12:38:46 PM Referred By: REFERRED SELF Confirmed By:Kendall Coburn
== END 2023-05-31 13:46 | disposition home or self-care (01) | DRG 243 ==
LOC: ED 11:42 → 2S 11:42